=== PATIENT | female | born 1995 | race Caucasian/White ===

== ENCOUNTER 2024-01-27 01:10 | Day surgery (SDC) | payer OTHER, SELFPAY ==
[2024-01-26 10:38] VITALS: BMI 29.6
--- NOTE | 2024-01-26 10:46 | PC.NURSE ---
Report to the Outpatient Waiting Room, entrance under the green pavilion located off [facility], at time _0930_ on date _[id number]_. Planned Procedure Time: _1130_. Time changes happen often and if your time is changed the preop area will call you the afternoon before. - You and your visitor will be asked to self-screen and do not enter if you have any COVID symptoms. - A mask is optional within the hospital at this time. Patients may have clear liquids (water, carbonated beverages, clear teas, apple juice) until 3 hours prior to surgery with a maximum of 20 ounces. - No food from midnight until time of surgery Take the following medications with a SIP of water the morning of surgery: ___None DO NOT STOP ANY OF YOUR OTHER PRESCRIPTION MEDICATIONS PRIOR TO SURGERY ?EXCEPT THE FOLLOWING Medications to discontinue per physician None Date to take last dose Please no make-up, nail honduran, hairspray, perfume, deodorant, or body powder the day of surgery. No jewelry (including any body piercings) or valuables the day of surgery, leave them at home. Please take a shower or bath the night before, or the morning of, surgery with an antibacterial soap. Wear comfortable, loose fitting clothing. - Jewelry must be removed prior to entering the operating room. Rings and piercings that are not removed may be cut off. - The hospital will not accept responsibility for valuables. - Please leave all valuables, including medications, at home the day of surgery. If you are going home after surgery, a licensed concrete mixing truck driver must drive you home. - NO public transportation without another adult if you receive anesthesia. - We recommend that an adult stay with you for 24 hours following discharge. - We also recommend that you do not drive, make important decision, drink alcoholic beverages, or take any drugs that were not prescribed by your health care provider for at least 24 hours after your discharge time. Follow any additional instructions given to you from your surgeon. If you or anyone in your household have experienced Covid symptoms in the past week, please notify your surgeon or the nurse liaison at the phone number below for possible testing. Telephone instructions given to __Jessi____and asked if any additional questions and then verbalized understanding. Patient advised to call surgeon office or pre surgery nurse liaison [phone] if any additional questions.
[2024-01-27] MEDS: ACETAMINOPHEN 500 MG TABLET 1000 MG PO (10:06)
[2024-01-27] MEDS: LACTATED RINGERS 1,000 ML 30 ML IV CONT ×2 (10:06→13:22)
[2024-01-27 10:27] VITALS: BP 104/69; PULSE 83; RESP 14; TEMP 36.3; O2SAT 100; BMI 28.7
--- NOTE | 2024-01-27 10:59 | P.PNAN_ITS ---
Anes - Initial Pre Proc Eval Procedure: Operation Date: 01/27/24 11:30 Proposed Procedures p Suction Dilation and Curettage - Senia Corcoran MD Date/Time: 01/27/24 10:59 Surgeon: Senia Corcoran MD Pre Op Diagnosis: retained products of conception Patient Data Age: 28 Gender: F Height: 1.7 m Weight: 83.15 kg Last Vital Signs Temp 36.3 C L 01/27/24 10:27 Pulse 83 01/27/24 10:27 Resp 14 01/27/24 10:27 BP 104/69 01/27/24 10:27 Pulse Ox 100 01/27/24 10:27 O2 Del Method Room Air 01/27/24 10:27 Allergies Allergy/AdvReac Type Severity Reaction Status Date / Time No Known Allergies Allergy Verified 01/27/24 10:39 Home Medications Medication Instructions Recorded Confirmed Type No Home Medications 01/26/24 01/27/24 History Laboratory Tests 01/27/24 09:51 Blood Type A Positive Antibody Screen Pending Screen Pending Baby's Blood Type Pending Baby's LIZZY Pending Doses of RhIg Required Pending Patient hx anesthesia problems: none Family hx anesthesia problems: none Results Review: All pre-operative results and documents have been reviewed as part of the pre- operative evaluation. PMFSH Past Medical History Medical History (Updated 01/27/24 @ 11:02 by Segundo Crawford MD) Missed ab Surgical History Surgical History (Updated 01/27/24 @ 11:02 by Segundo Crawford MD) Hx of tonsillectomy Social History Social History Smoking status: Never smoker Alcohol intake: current Drinks per week: 6 Substance use: former Substance use type: marijuana Living arrangements: with family Spiritual care concerns: No Anes - Eval Final PreProcedure Day of Procedure 01/27/24 10:59 Patient weight: overweight Heart: regular rate and rhythm Lungs: clear to auscultation Airway: Mallampati scale class II Neurological: alert and oriented Last oral intake: >/= 8 hours ASA classification: II Emergent: no Anesthetic plan: proceed Anesthesia type and monitoring: general GIVS and standard monitoring Results Review: All pre-operative results and documents have been reviewed as part of the pre- operative evaluation. Informed Consent: The patient's anesthetic plan and its attendant risks and benefits were discussed with the patient/family/POA. Questions were solicited and answers provided to the satisfaction of the patient/family/POA.
--- NOTE | 2024-01-27 11:55 | WPDHPUPDATE1 ---
History and Physical Update Update Date/Time: 01/27/24 11:55 History and Physical has been reviewed, including an updated exam of the patient. There are NO changes in the patient's condition. Risks, benefits, and alternatives have been discussed and questions answered. Patient agrees to proceed with procedure.
[2024-01-27 12:54] VITALS: BP 114/65; PULSE 58; RESP 18; O2SAT 99
--- NOTE | 2024-01-27 12:56 | W.PM.PROC2 ---
Procedure Note - Detailed Date of Procedure 01/27/24 Pre-op Diagnosis retained products of conception Post-op Diagnosis Same Procedure Performed Suction D&C Surgeon Senia Corcoran MD Anesthesia MAC Indications missed Findings normal-appearing vulva vagina and cervix to. Moderate amount of products conception within the uterus. 8 cm uterus Description of Procedure the patient was taken the operating room. She was prepped and draped in dorsal lithotomy position after induction of mac anesthesia. A speculum was placed in the vagina. Cervix grasped with tenaculum. The cervix was dilated to about 1 cm Using Leyva dilators. A 8. Macedonian curved curette was used to perform suction D&C. The curette was introduced and vacuum was applied. The curette was removed over all surfaces of the intrauterine cavity multiple times. This was done until all the surfaces were clear and had the familiar grainy texture they can be felt through the instrument. A sharp curette was then used to curettage all the surfaces. The suction cup was then reapplied 1 more time to remove any debris. The instruments were removed. The speculum and tenaculum were removed. The patient tolerated the procedure well. She was taken recovery room stable condition. Estimated Blood Loss 50 Drains No Packing No Pathology Yes Complications No immediate complications Condition Stable Disposition PACU
[2024-01-27 13:20] VITALS: BP 121/53; PULSE 56; RESP 20
[2024-01-27 13:50] VITALS: BP 120/50; PULSE 58; RESP 20
== END 2024-01-27 13:54 | disposition home or self-care (01) ==
PROVIDERS: Visit Provider Obstetrics & Gynecology
PROC: (CPT 59812; principal; 2024-01-27 11:30)
DX: O03.4 Incomplete spontaneous abortion without complication (principal)
CPT/HCPCS: 59812; 36415; 85461; 86850; 86900; 86901; 88305; A9270; J1100; J1885; J2250; J2405; J2704; J3010; J7120

== ENCOUNTER 2024-10-27 09:31 | Outpatient (CLI) | payer BC, SELFPAY ==
--- OUTSIDE RECORDS SUMMARY | 2024-10-27 10:14 | XMS_ITS | Data Portability ---
Author Organization [facility] Address [address] [place] [address] Assessment Encounter Date Assessment Date Assessment LastModified by Organization Details LastModified Time 10/27/2024 10/27/2024 Patient is __36_weeks . Discussed plan. Not available 10/27/2024 10:36:37 Plan of Treatment Reminders Order Date Submit Date Provider Last Modified By Organization Details Last Modified Time Details Appointments NST 2024 08:30A M NST SCHEDULE Not available Not available Not available U/S OB BPP 2024 09:00A M ULTRASOUND Not available Not available Not available OB ROUTINE 2024 09:30A M Margie Hutchinson CNM Not available Not available Not available NST 2024 11:00A M NST SCHEDULE Not available Not available Not available U/S OB BPP 2024 11:30A M ULTRASOUND Not available Not available Not available OB ROUTINE 2024 11:45A M CABRERA HyattM Not available Not available Not available U/S OB GROWTH 2024 08:30A M ULTRASOUND Not available Not available Not available NST 2024 09:00A M NST SCHEDULE Not available Not available Not available OB ROUTINE 2024 09:30A M CABRERA HyattM Not available Not available Not available INDUCTI ON 2024 05:00A M Margie Hutchinson CNM Not available Not available Not available U/S OB BPP 2024 08:30A M ULTRASOUND Not available Not available Not available NST 2024 09:00A M NST SCHEDULE Not available Not available Not available OB ROUTINE 2024 09:30A M Margie Hutchinson CNM Not available Not available Not available Lab None recorde d. Referral None recorde d. Procedures None recorde d. Surgeries None recorde d. Imaging US, obstetr ic, biophys ical profile + non-str ess test 2024 025 [email or web address] [facility], [address], [place], [address], 10/20/2024 21:50:37 non-str ess test 2024 025 [email or web address] [facility], [address], [place], [address], 10/21/2024 09:39:53 US, obstetr ic, biophys ical profile + non-str ess test 2024 025 [email or web address] [facility], [address], [place], [address], 10/27/2024 10:13:03 Medication Orders None recorde d. Patient TargetsNo targets recorded. Patient InstructionsNo instructions recorded. Reason for Referral None Reported. Results Created Date Observation Date Name Description Value Unit Range Abnormal Flag Note LastModifiedBy Organization Detail LastModifiedTime 10/13/1910/13/2024 TSH, REFLE X FREE T4 TSH 4.09 uIU/m L 0.30-5 .33 Not Available [facility] (Lab) [address], [place], [address], 10/14/2024 08:10:07 10/20/19 25 10/20/2024 CULTU RE: GROUP B STREP SCREE N, REFLE X SUSCE PTIBI LITY result report SEE RESULT S BELOW Test: Cultu re: Group B Strep , Refle x Susce ptibi lity ([facility]/ [facility] ) Speci men Sourc e: Vagin a/Rec susana Speci men Type: Vagin al/Re ctal Speci men Date: 2024 1718 Resul t Date: 2024 1137 Resul t Statu s: Final resul t Abnor mal: No Resul michealg Lab: [facility] [address] [facility] [address] Tel: CULTU RE ----- ----- ----- --- No Group B strep isola heidi at 2 days (reji ctive broth enhan cemen t) Not Available [facility] (Lab) [address], [place], [address], 10/23/2024 12:41:08 10/13/1910/13/2024 US, obste tric, follo w-up No observ ation record ed. [email or web address] [facility] [address], [place], [address], 10/13/2024 13:09:19 10/13/19 25 10/13/2024 US, obste tric, follo w-up No observ ation record ed. [email or web address] [address], [place], [address], 10/13/2024 16:17:31 10/20/19 25 10/20/2024 US, obste tric, bioph ysica l profi le + non-s tress test No observ ation record ed. [email or web address] [address], [place], [address], 10/20/2024 18:47:14 10/20/19 25 10/20/2024 US, obste tric, bioph ysica l profi le + non-s tress test No observ ation record ed. [email or web address] [address], [place], [address], 10/20/2024 21:22:41 10/20/19 25 10/20/2024 non-s tress test No observ ation record ed. [email or web address] [facility] [address], [place], [address], 10/20/2024 21:09:03 10/27/19 25 10/27/2024 US, obste tric, bioph ysica l profi le + non-s tress test No observ ation record ed. [email or web address] [facility] [address], [place], [address], 10/27/2024 10:14:40 10/27/19 25 10/27/2024 US, obste tric, bioph ysica l profi le + non-s tress test No observ ation record ed. [email or web address], [place], [address], 10/27/2024 10:13:03 Result Notes None recorded. Problems Name Problem SNOMED Code Status Onset Date Resolution Date Notes Provider Name and Address Organization Details Recorded Time 02998453 Active 2023 Edith Welsh [facility] 17:04:33 Hypothyroi dism 07795173 Active 2023 Levothyrox ine 25mcg rpt 4 weeks. testing 34w Pearl Nicolas [facility] 14:04:46 Problem Notes None recorded. Procedures Surgical History Date Name Laterality Status Provider Name and Address Organization Details Recorded Time 01/27/20 24 SUCTION DILATION & CURETTAGE (SURG) completed Bunny Cat [facility] 01/29/2024 09:59:12 06/11/20 23 IUD Removal completed JOHNNY Broderick [address], [place], [address], [facility] 06/11/2023 10:31:18 06/11/20 23 Date of Last Pap Smear completed Edith Welsh [facility] 01/09/2024 11:26:24 09/29/18 99 Tonsillectomy completed Edith Welsh [facility] 01/09/2024 11:53:32 Imaging Results Imaging Date Name Status LastModified by Organiz ation Details LastModified Time 10/13/2024 US, obstetric, follow-up completed [email or web address] [facility] [address], [place], [address], 10/13/2024 13:09:19 10/13/2024 US, obstetric, follow-up completed [email or web address] [address], [place], [address], 10/13/2024 16:17:31 10/20/2024 US, obstetric, biophysical profile + non-stress test completed [facility] [address], [place], [address], 10/20/2024 18:47:14 10/20/2024 US, obstetric, biophysical profile + non-stress test completed [email or web address] [address], [place], [address], 10/20/2024 21:22:41 10/20/2024 non-stress test completed [facility] [address], [place], [address], 10/20/2024 21:09:03 10/27/2024 US, obstetric, biophysical profile + non-stress test completed [email or web address] [place] [address] [address], [place], [address], 10/27/2024 10:14:40 10/27/2024 US, obstetric, biophysical profile + non-stress test active [email or web address], [place], [address], 10/27/2024 10:13:03 Procedure Notes None recorded. Medical Equipment None Reported. Allergies No known drug allergies Medications Name Sig Start Date Stop Date Status Note LastModified by Organization Details LastModified Time levothyroxin e 25 mcg tablet TAKE 1 TABLET BY MOUTH EVERY DAY DIRECTED active Not Available Not Available No t Available ondansetron 4 mg disintegrati ng tablet Place 1 tablet every 4-6 hours by translingua l route. 2024 active Not Available Not Available Not Avai lable Vitals Date Recorded Body weight Systolic blood pressure Diastolic blood pressure Provider Name and Address Organization Details Last Updated DateTime 10/20/2024 88526.6205 9 g 136 mm[Hg] 84 mm[Hg] JULES BALLARD [facility] 10/20/2024 16:13:19 Date Recorded Body height Body weight Body height Body mass index (BMI) Body weight Systolic blood pressure Diastolic blood pressure Systolic blood pressure Diastolic blood pressure Provider Name and Address Organization Details Last Updated DateTime 170.18 cm 43387.6 2059 g 170.18 cm 32.4 kg/m2 66851.6 2 g 136 mm[Hg] 84 mm[Hg] 136 mm[Hg] 84 mm[Hg] Edith Welsh [facility] 5 21:07:26 Date Recorded Body height Body mass index (BMI) Body weight Systolic blood pressure Diastolic blood pressure Provider Name and Address Organization Details Last Updated DateTime 10/27/2024 170.18 cm 32.4 kg/m2 11813.62 g 132 mm[Hg] 81 mm[Hg] Edith Welsh [facility] 5 10:13:36 Social History Question Answer Notes LastModified by Organizat ion Details LastModified Time Tobacco Smoking Status Never Smoker Edith Welsh [facility], [facility] 01/09/2024 11:53:25 What Is Your Level Of Alcohol Consumption? None [email or web address] Information not available 01/09/2024 If You Are , What Was Your Level Of Alcohol Consumption Prior To ? Occasional [email or web address] Information not available 01/09/2024 How Many Years Have You Consumed Alcohol? 7 Information not available 06/11/2023 Are You Blind Or Do You Have Difficulty Seeing? No Information not available 06/11/2023 What Is Your Level Of Caffeine Consumption? Moderate Information not available 06/11/2023 How Much Tobacco Do You Chew? None Information not available 06/11/2023 In The 14 Days Before Symptom Onset, Have You Had Close Contact With A Laboratory-confir med COVID-19 While That Case Was Ill? No Information not available 06/11/2023 In The 14 Days Before Symptom Onset, Have You Had Close Contact With A Person Who Is Under Investigation For COVID-19 While That Person Was Ill? No Information not available 06/11/2023 Have You Been To An Area Known To Be High Risk For COVID-19? No Information not available 06/11/2023 Are You Deaf Or Do You Have Serious Difficulty Hearing? No Information not available 06/11/2023 What Type Of Diet Are You Following? VEGETARIAN Information not available 06/11/2023 Do You Or Have You Ever Used E-cigarettes Or Vape? Former User Of Electronic Cigarettes [email or web address] Information not available 01/09/2024 What Is The Highest Grade Or Level Of School You Have Completed Or The Highest Degree You Have Received? 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 No Information not available 06/11/2023 Do You Use Protection During Sex? No Information not available 06/11/2023 Do You Use Your Seat Belt Or Car Seat Routinely? Yes Information not available 06/11/2023 Do You Have Smoke And Carbon Monoxide Detectors In Your Home? Yes Information not available 06/11/2023 How Much Tobacco Do You Smoke? No Information not available 06/11/2023 Do You Feel Stressed (tense, Restless, Nervous, Or Anxious, Or Unable To Sleep At Night)? [id number] Information not available 06/11/2023 Do You Use Any Illicit Or Recreational Drugs? No [email or web address] Information not available 05/12/2024 Do You Use Sunscreen Routinely? Yes Information not available 06/11/2023 Has Tobacco Cessation Counseling Been Provided? No [email or web address] Information not available 01/09/2024 Have You Used IV Drugs? No Information not available 06/11/2023 Do You Or Have You Ever Used Any Other Forms Of Tobacco Or Nicotine? Yes [email or web address] Information not available 01/09/2024 Sex: Unknown Functional Status Question Answer Note LastModified by Organizat ion Details LastModified Time Do you have difficulty walking or climbing stairs? No Information not available 06/11/2023 Are you able to walk? [email or web address] Information not available 06/11/2023 Are you able to care for yourself? Yes Information not available 06/11/2023 Do you have difficulty dressing or bathing? No Information not available 06/11/2023 What is your exercise level? Moderate Information not available 06/11/2023 Mental Status None recorded. Family History Relationship Description Onset Age of this Age Resolved Age Notes LastModified by Organization Details LastModified Time Mother Disorder of thyroid gland [email or web address] Not available 05/30 10:06:38 Medical History Condition Response Allergies (Food, seasonal, environmental ) N Other N Breast Cancer N Drug/Latex Allergies/Reactions N Blood Transfusion N Lung Disease N Dermatologic Disorders N Defects or Inherited Disease N Breast Problem N Gestational Diabetes N Hematologic disorders N Anesthesia Complications N History of STI N Deep Vein Thrombosis N Polycystic ovary syndrome N Anxiety Disorder N Autoimmune disease N Arthritis N Polyps N Infertility N History of abnormal pap N Acid Reflux (GERD) N Cancer N Varicosities N Stroke N Neurologic/Epilepsy N Endometriosis N High Cholesterol N Fibromyalgia N Headaches N Kidney Disease N Heart Problems N Kidney or Bladder Problems N Thyroid Problems N GI Problems N Eating Disorder N Anemia N Art (IVF or FET) N Psychiatric Illness N Ovarian Cancer N Diabetes N Pulmonary (TB, Asthma) N Hepatitis/Liver Disease N No Past Medical History Y Eczema N Urinary Tract Infection N Abuse/Domestic Violence N Asthma N Trauma/Violence N Depression/ depression N Heart Disease N Pre-Eclampsia N Hypertension N Osteoporosis N Thrombophilias N Gynecological History Statement/Question Response Abnormal Pap N Date of Last Mammogram Date of LMP N On BCP's at Conception? N STIs/STDs N Was last menstrual period normal Y HPV Vaccine Y Duration of Flow (days) 3 Current Control Method Age at First Child 23 Date of control 11/27/2018 Frequency of Cycle (Q days) 25 Sexually Active? Y None Date of DEXA bone scan Age of first menstrual cycle 11 Date of Last Pap Smear 06/11/2023 Sexual Problems? N LMP Unknown Desired Control Method Withdrawal N Obstetrics History GPAL:G 3 P 1 0 1 1 Type Value Full Term 1 Spontaneous 1 Living 1 Total 3 Past Encounters Encounter ID Performer Location Encounter Start Date Encounter Closed Date Diagnosis/Indication Diagnosis SNOMED-CT Code Diagnosis ICD10 Code Diagnosis Note [id number] JOHNNY Broderick [facility] [address] [address] 06/11/2023 09:47:19 06/11/2023 10:36:53 Screening procedure 00760808 Z13.9 Gynecologi c examination 12086432 Z01.419 Take Calcium with Vitamin D 1200mg daily if not receiving in daily diet. It is strongly advised to have an annual flu shot and up can obtain at most pharmacies . If you have not had a TDap shot in the last 10 years you should obtain one as well. Discussed with patient & provided with informatio n regarding Gardisil vaccine to prevent the 4 strains for HPV that cause cervical cancer if under age 26. Encourage safe sexual practices, to use condoms and limit partners if not already in a monogamous relationsh ip. Do monthly self breast exams. Have mammogram yearly or every other year depending on family history. BRCA testing is now available for patients with strong genetic history of female cancer. If interested contact the office. Engage in daily exercise of low impact aerobic exercise 45-60 minutes 4-5 times weekly. Avoid tobacco and illicit drugs as well as using moderation with alcohol intake less than 1-2 8 oz beverages daily. This lifestyle behavior pattern will lead to less health conditions and longer life span. If BMI greater than 25 weight watchers or dietary consult advised. Patient received above instructio ns, and questions have been answered. If you have any questions please call or respond to this email. Patient was made aware of the patient portal and may obtain a paper copy of today's plan if desired. WWEB - Mirena IUD, inserted 11/2018wou ld like IUD removed today to TTCUPT (-), consent reviewed and signedIUD removed (see procedure note)encou raged daily PNV starting now, discussed timed ICpap updatedSTI testing declineden couraged annual exam with PCP Removal of intrauterine device 92499801 Z30.[id number] [facility] [address],[place] [address] 01/06/2024 11:58:33 01/06/2024 13:07:24 [id number] [facility] [address],[place] [address] 01/09/2024 11:24:54 01/09/2024 12:15:45 Amenorrhea 18417432 N91.2 reviewed us and office, precaution s , educationp ap up to datevegan, eats cheese, discussed b12 with labsf/u rpt screening 2 weeksthen new ob and first look at 12 weeksok to continue with exercise Venereal d isease screening 929804284 Z11.[id number] [facility] [address],[place] [address] 01/22/2024 12:21:31 01/22/2024 13:35:21 Missed miscarriage 84092819 O02.1 Incomplete miscarriage 612636301 O03.4 Z3A.10 [id number] Zen Corcoran MD [facility] [address],[place] [address] 01/23/2024 10:59:17 01/23/2024 12:40:53 Incomplete miscarriage 701764233 O03.4 Z3A.10 this patient is a 28-year-ol d female with incomplete miscarriag e. We have agreed to perform suction D&C. She understand s risks, benefits, and alternativ es. She is completed the informed consent process and is ready to proceed. We made a decision to perform surgery today. [id number] Zen Corcoran MD [facility] [address],[place] [address] 02/03/2024 12:00:04 02/03/2024 12:46:13 Incomplete miscarriage 596492205 O03.4 Z3A.10 this patient presents for postop follow-up. She is 1 week postop from a suction D&C. She is recovering normally. Her bleeding is minimal. She has no foul-smell ing vaginal discharge. She denies any nausea, vomiting, fever, chills. We discussed contracept ion. We discussed future . She will follow up for a repeat test. Procedure was performed for incomplete miscarriag e [id number] [facility] [address],[place] [address] 04/29/2024 11:24:12 04/29/2024 12:03:18 screening 325253134 Z36.[id number] [facility] [address],[place] [address] 05/12/2024 15:48:46 05/12/2024 16:49:05 screening 091493171 Z36.82 Z3A.12 [id number] Margie Hutchinson [facility] [address],[place] [address] 05/12/2024 15:49:08 05/12/2024 17:09:17 Gestation period, 12 weeks 26549913 Z3A.12 Routine an tenatal care 149504212 Z34.90 Venereal d isease screening 859106748 Z11.3 [id number] Margie Hutchinson [facility] [address],[place] [address] 06/09/2024 09:53:50 06/09/2024 11:24:02 Fatigue 37051358 R53.83 Routine an tenatal care 761823593 Z34.90 [id number] Cristine [facility] [address],[place] [address] 07/07/2024 09:14:33 07/07/2024 10:40:43 screening for malformation 002801234 Z36.3 Z3A.20 [id number] Margie Hutchinson [facility] [address],[place] [address] 07/07/2024 09:16:42 07/07/2024 10:53:25 Gestation period, 20 weeks 42676625 Z3A.[id number] [facility] [address],[place] [address] 08/04/2024 11:44:32 08/04/2024 13:21:42 screening 075937445 Z36.2 Z3A.24 [id number] Margie Hutchinson [facility] [address],[place] [address] 08/04/2024 11:45:19 08/04/2024 13:21:34 Anxiety 98023872 F41.9 Weight increased 6450219 00 R63.5 [id number] Margie Hutchinson [facility] [address],[place] [address] 09/01/2024 09:25:14 09/01/2024 10:33:17 Gestation period, 28 weeks 41385420 Z3A.28 [id number] Margie Hutchinson [facility] [address],[place] [address] 09/17/2024 10:09:34 09/17/2024 10:54:03 Gestation period, 30 weeks 08932116 Z3A.30 [id number] Margie Hutchinson [facility] [address],[place] [address] 10/01/2024 11:42:45 10/01/2024 12:13:48 Nausea and vomiting 14130304 R11.[id number] [facility] [address],[place] [address] 10/13/2024 09:13:11 10/13/2024 10:08:50 Hypothyroidism in 732144262 E03.9 Z3A.34 [id number] Margie Hutchinson [facility] [address],[place] [address] 10/13/2024 09:13:25 10/13/2024 10:51:30 Gestation period, 34 weeks 67545999 Z3A.34 [id number] Edith Welsh [facility] [address],[place] [address] 10/20/2024 15:52:42 10/21/2024 09:39:53 Maternal obesity complicating , childbirth and the puerperium, antepartum 8456727409 07 O99.213 [id number] Cristine Singh [facility] [address],[place] [address] 10/20/2024 15:53:06 10/20/2024 17:47:24 Hypothyroidism in 453420687 O99.283 Z3A.35 [id number] Margie Hutchinson [facility] [address],[place] [address] 10/20/2024 15:53:20 10/21/2024 00:46:19 Gestation period, 35 weeks 30583512 Z3A.35 [id number] [facility] [address],[place] [address] 10/27/2024 09:17:27 10/27/2024 10:09:57 Hypothyroidism in 840974288 O99.283 Z3A.36 [id number] Margie Hutchinson [facility] [address],[place] [address] 10/27/2024 09:17:40 10/27/2024 10:37:52 Gestation period, 36 weeks 48819580 Z3A.36 Health Concerns Section Related Observation LastModified by Organization Detai ls LastModified Time None Recorded Concern Status LastModified by Organization Details LastModified Time None Recorded Advance Directives Directive None Recorded Payers Encounter Date Sequence Insurance Name Policy Number Policy Rodriguez Covered Member ID Rodriguez Member ID Guarantor Name 10/20/2024 1 [place] [id number] Kaushal Lynch [id number] 21 Jessi Lynch 10/20/2024 1 [place] [id number] Kaushal Lynch [id number] 21 Jessi Lynch 10/27/2024 1 [place] [id number] Kaushal Lynch [id number] 21 Jessi Lynch 10/27/2024 1 [place] [id number] Kaushal Lynch [id number] Jessi Lynch OBGyn Episode Ob Episode Information Episode Created Date Number of Fetuses Patient Bloodtype Patient rh Status Prepregnancy Weight lbs Domestic Partner Domestic Partner Phone Father Name Supervisor Locomotive Status 05/12/20 24 1 A Positive 186 Kaushal Montgomery en OPEN Fetus Data First Name Last Name Admitted to NICU Weight (g) Sex Living Outcome Pediatric Complications Fetus ID Race Codes Race Delivery Type [id number] Problems Problem Notes declines cf/sma/niptAnterior Placenta Problem Name Start Date End Date Resolution Snomed Code Not e Hypothyroidism 08/09/2024 22744309 Levo thyroxine 25mcg rpt 4 weeks. testing 34w Xavi Calculation Initial Xavi Date Initial Exam Date Initial Exam Provider Initial Ultrasound Date Last Menstrual Period Date Ultra Sound Weeks Gestation 11/22/2024 04/29/2024 04/29/2024 10 Eighteen To Twenty Week Xavi Update Ultra Sound Date Fundal Height At Umbil Quickening Date Ultra Sound Latest Weeks Gestation Final Xavi Confirmed By Final Xavi Confirmed Date Final Xvai Date Ultra Sound Latest Days Gestation 0 [email or web address] 05/13/2024 11/22/19 25 0 Pre- Flowsheet Flowsheet Date 05/12/2024 Patel Score Blood Edema Fundus Height Fundus Units Glucose Ketones Leukocytes Nitrite Labor Signs Protein Cervic Dilation Cervic Effacement Cervic Station Type Weight in lbs Pre/Post Dialysis Refused Weight 185.507678332850 BP Diastolic BP Location Tested BP Systolic BP Type 67 112 Fetus Heart Rate Present Fetus Movement Comments history of full term uncompl icated vaginal delivery at 41 weeks, reviewed us today and wnl, still using zofran daily, ok to use unisom for sleep, f/u 4 weeks ob visit or sooner if needed. begin routine care, labs today with NIPS Flowsheet Date 06/09/2024 Patel Score Blood Edema Fundus Height Fundus Units Glucose Ketones Leukocytes Nitrite Labor Signs Protein Cervic Dilation Cervic Effacement Cervic Station none Type Weight in lbs Pre/Post Dialysis Refused 184.653328383293 BP Diastolic BP Location Tested BP Systolic BP Type 72 108 Fetus Heart Rate Present A 140 Present Fetus Movement A Yes Comments Patient states that is start ing to have issues with allergies, and is having some nausea and vomiting. refill zofran, ok for saline spray, snacks inbetween meals f/u 4 weeks, precautions and education Flowsheet Date 07/07/2024 Patel Score Blood Edema Fundus Height Fundus Units Glucose Ketones Leukocytes Nitrite Labor Signs Protein Cervic Dilation Cervic Effacement Cervic Station Type Weight in lbs Pre/Post Dialysis Refused BP Diastolic BP Location Tested BP Systolic BP Type Fetus Heart Rate Present Fetus Movement Comments Flowsheet Date 07/07/2024 Patel Score Blood Edema Fundus Height Fundus Units Glucose Ketones Leukocytes Nitrite Labor Signs Protein Cervic Dilation Cervic Effacement Cervic Station none Type Weight in lbs Pre/Post Dialysis Refused 191.324368203061 BP Diastolic BP Location Tested BP Systolic BP Type 62 111 Fetus Heart Rate Present Fetus Movement A Yes Comments Patient is having some left side pain and nausea. discussed increased hydration, maternity belt at 28 weeks, anatomy incomplete anterior placenta, continue zofran as needed, education and precautions f/u 4 weeks with US Flowsheet Date 08/04/2024 Patel Score Blood Edema Fundus Height Fundus Units Glucose Ketones Leukocytes Nitrite Labor Signs Protein Cervic Dilation Cervic Effacement Cervic Station Type Weight in lbs Pre/Post Dialysis Refused BP Diastolic BP Location Tested BP Systolic BP Type Fetus Heart Rate Present Fetus Movement Comments Flowsheet Date 08/04/2024 Patel Score Blood Edema Fundus Height Fundus Units Glucose Ketones Leukocytes Nitrite Labor Signs Protein Cervic Dilation Cervic Effacement Cervic Station none Type Weight in lbs Pre/Post Dialysis Refused 199.023355265321 BP Diastolic BP Location Tested BP Systolic BP Type 68 106 Fetus Heart Rate Present Fetus Movement A Yes Comments Patient is having some anxie ty, pain, contractions, cramping, nausea and vomiting. no suicidal thoughts wants thyroid panel, if normal may consider low dose sertraline discussed maternal and side effects, await labs precaution and education, f/u 4 weeks with GCTefw 43% anatomy complete Flowsheet Date 09/01/2024 Patel Score Blood Edema Fundus Height Fundus Units Glucose Ketones Leukocytes Nitrite Labor Signs Protein Cervic Dilation Cervic Effacement Cervic Station none Type Weight in lbs Pre/Post Dialysis Refused 206.634144475089 BP Diastolic BP Location Tested BP Systolic BP Type 74 108 Fetus Heart Rate Present Fetus Movement A Yes Comments Patient states that is havin g some BH contractions, nausea and vomiting. reviewed precautions education GCT today, ok for tdap, +FM doing well f/u 2 weeks Flowsheet Date 09/17/2024 Patel Score Blood Edema Fundus Height Fundus Units Glucose Ketones Leukocytes Nitrite Labor Signs Protein Cervic Dilation Cervic Effacement Cervic Station trace Type Weight in lbs Pre/Post Dialysis Refused 204.469466579485 BP Diastolic BP Location Tested BP Systolic BP Type 71 109 Fetus Heart Rate Present Fetus Movement A Yes Comments Patient is having contractio ns, swelling, nausea and vomiting. reviewed precautions and education,+FM, would like IOL around 11/16 roscoe, f/u 2 weeks Flowsheet Date 10/01/2024 Patel Score Blood Edema Fundus Height Fundus Units Glucose Ketones Leukocytes Nitrite Labor Signs Protein Cervic Dilation Cervic Effacement Cervic Station 33 cm Type Weight in lbs Pre/Post Dialysis Refused Weight 203.225693857269 BP Diastolic BP Location Tested BP Systolic BP Type 72 123 Fetus Heart Rate Present A 135 Fetus Movement Comments has growth next visit, refil nathaniel chao, +FM, precautions and education f/u 2 weeks, call for preadmit Flowsheet Date 10/13/2024 Patel Score Blood Edema Fundus Height Fundus Units Glucose Ketones Leukocytes Nitrite Labor Signs Protein Cervic Dilation Cervic Effacement Cervic Station Type Weight in lbs Pre/Post Dialysis Refused BP Diastolic BP Location Tested BP Systolic BP Type Fetus Heart Rate Present Fetus Movement Comments Flowsheet Date 10/13/2024 Patel Score Blood Edema Fundus Height Fundus Units Glucose Ketones Leukocytes Nitrite Labor Signs Protein Cervic Dilation Cervic Effacement Cervic Station neg none Type Weight in lbs Pre/Post Dialysis Refused Weight 205.354472717142 BP Diastolic BP Location Tested BP Systolic BP Type 76 110 Fetus Heart Rate Present Fetus Movement A Yes Comments Patient is having some short ness of breathe, back pain, contractions and nausea. discussed precautions and education, plan rpt tsh, did not start levothyroxine, efw 45%, preadmit scheduled. unsure about rsv f/u 2 weeks plan gbs Flowsheet Date 10/20/2024 Patel Score Blood Edema Fundus Height Fundus Units Glucose Ketones Leukocytes Nitrite Labor Signs Protein Cervic Dilation Cervic Effacement Cervic Station Type Weight in lbs Pre/Post Dialysis Refused Weight 207.070240004405 BP Diastolic BP Location Tested BP Systolic BP Type 84 136 Fetus Heart Rate Present Fetus Movement Comments Flowsheet Date 10/20/2024 Patel Score Blood Edema Fundus Height Fundus Units Glucose Ketones Leukocytes Nitrite Labor Signs Protein Cervic Dilation Cervic Effacement Cervic Station Type Weight in lbs Pre/Post Dialysis Refused 207.648374366739 BP Diastolic BP Location Tested BP Systolic BP Type 84 L arm 136 sitting Fetus Heart Rate Present Fetus Movement Comments Flowsheet Date 10/20/2024 Patel Score Blood Edema Fundus Height Fundus Units Glucose Ketones Leukocytes Nitrite Labor Signs Protein Cervic Dilation Cervic Effacement Cervic Station trace Type Weight in lbs Pre/Post Dialysis Refused 207.247551302205 BP Diastolic BP Location Tested BP Systolic BP Type 84 136 Fetus Heart Rate Present Fetus Movement A Yes Comments Patient states that is havin g some shortness of breathe , back pain, contractions, discharge, swelling and nausea. Flowsheet Date 10/27/2024 Patel Score Blood Edema Fundus Height Fundus Units Glucose Ketones Leukocytes Nitrite Labor Signs Protein Cervic Dilation Cervic Effacement Cervic Station Type Weight in lbs Pre/Post Dialysis Refused BP Diastolic BP Location Tested BP Systolic BP Type Fetus Heart Rate Present Fetus Movement Comments Flowsheet Date 10/27/2024 Patel Score Blood Edema Fundus Height Fundus Units Glucose Ketones Leukocytes Nitrite Labor Signs Protein Cervic Dilation Cervic Effacement Cervic Station Type Weight in lbs Pre/Post Dialysis Refused BP Diastolic BP Location Tested BP Systolic BP Type Fetus Heart Rate Present Fetus Movement Comments Flowsheet Date 10/27/2024 Patel Score Blood Edema Fundus Height Fundus Units Glucose Ketones Leukocytes Nitrite Labor Signs Protein Cervic Dilation Cervic Effacement Cervic Station neg trace Type Weight in lbs Pre/Post Dialysis Refused Weight 207.562420603753 BP Diastolic BP Location Tested BP Systolic BP Type 81 132 Fetus Heart Rate Present Fetus Movement A Yes Comments Patient is having some contr actions, discharge, swelling and nausea. to ld for r/o rupture, nst reassuring bpp 8/8 precautions and education, preadmit done f/u one week Menstrual History Last Menstrual Date Menses Monthly On Bcp Conception Prior Menses Frequency Hcg Plus Date Menarche Onset Age Delivery Information Delivery Date Delivery Type Labor Anesthesia Weeks Gestation Incision Type Labor Labor Length Hrs Delivered By Post Complications Tubal Sterilization Discharge Date Comments Discharge Information Feeding Method Contraceptive Method Maternal HG B and HCT Levels Ob Episode Information Episode Created Date Number of Fetuses Patient Bloodtype Patient rh Status Prepregnancy Weight lbs Domestic Partner Domestic Partner Phone Father Name Supervisor Locomotive Status 05/12/20 24 1 CLOSED Fetus Data First Name Last Name Admitted to NICU Weight (g) Sex Living Outcome Pediatric Complications Fetus ID Race Codes Race Delivery Type , Spontane ous [id number] Xavi Calculation Initial Xavi Date Initial Exam Date Initial Exam Provider Initial Ultrasound Date Last Menstrual Period Date Ultra Sound Weeks Gestation 0 Eighteen To Twenty Week Xavi Update Ultra Sound Date Fundal Height At Umbil Quickening Date Ultra Sound Latest Weeks Gestation Final Xavi Confirmed By Final Xavi Confirmed Date Final Xavi Date Ultra Sound Latest Days Gestation 0 0 Menstrual History Last Menstrual Date Menses Monthly On Bcp Conception Prior Menses Frequency Hcg Plus Date Menarche Onset Age Delivery Information Delivery Date Delivery Type Labor Anesthesia Weeks Gestation Incision Type Labor Labor Length Hrs Delivered By Post Complications Tubal Sterilization Discharge Date Comments 4 Discharge Information Feeding Method Contraceptive Method Maternal HG B and HCT Levels Ob Episode Information Episode Created Date Number of Fetuses Patient Bloodtype Patient rh Status Prepregnancy Weight lbs Domestic Partner Domestic Partner Phone Father Name Supervisor Locomotive Status 06/11/20 23 1 CLOSED Fetus Data First Name Last Name Admitted to NICU Weight (g) Sex Living Outcome Pediatric Complications Fetus ID Race Codes Race Delivery Type 3316.66 [id number] F Full Term [id number] Vaginal Delivery Xavi Calculation Initial Xavi Date Initial Exam Date Initial Exam Provider Initial Ultrasound Date Last Menstrual Period Date Ultra Sound Weeks Gestation 0 Eighteen To Twenty Week Xavi Update Ultra Sound Date Fundal Height At Umbil Quickening Date Ultra Sound Latest Weeks Gestation Final Xavi Confirmed By Final Xavi Confirmed Date Final Xavi Date Ultra Sound Latest Days Gestation 0 0 Menstrual History Last Menstrual Date Menses Monthly On Bcp Conception Prior Menses Frequency Hcg Plus Date Menarche Onset Age Delivery Information Delivery Date Delivery Type Labor Anesthesia Weeks Gestation Incision Type Labor Labor Length Hrs Delivered By Post Complications Tubal Sterilization Discharge Date Comments 9 41 Discharge Information Feeding Method Contraceptive Method Maternal HG B and HCT Levels
--- OUTSIDE RECORDS SUMMARY | 2024-10-27 10:14 | XMS_ITS | Continuity of Care Document ---
Author Organization [facility] Address [address] [place] [address] Assessment Encounter Date Assessment Date Assessment LastModified [...] available OB ROUTINE 2024 09:30A M Margie Hutchinson, CABRERALily Not available Not available Not available Lab None recorde d. Referral None recorde d. Procedures None recorde d. Surgeries None recorde d. Imaging None recorde d. Medication Orders None recorde d. Patient TargetsNo targets recorded. Patient InstructionsNo instructions recorded. Reason for Referral None Reported. Results Created Date Observation Date Name Description Value Unit Range Abnormal Flag Note LastModifiedBy Organization Detail LastModifiedTime 05/12/20 24 05/12/2024 US, obste tric, nucha l trans lucen cy No observ ation record ed. [email or web address] [facility] [address], [place], [address], 05/12/2024 18:31:37 05/12/20 24 05/12/2024 US, obste tric, nucha l trans lucen cy No observ ation record ed. [email or web address] [address], [place], [address], 05/12/2024 21:43:48 07/07/2007/07/2024 US, obste tric, 2nd or 3rd trime ster No observ ation record ed. [email or web address] [facility] [address], [place], [address], 07/07/2024 11:18:40 07/07/2007/07/2024 US, obste tric, follo w-up No observ ation record ed. [address], [place], [address], 07/08/2024 14:51:45 08/04/20 24 08/04/2024 US, obste tric, follo w-up No observ ation record ed. [email or web address] [address], [place], [address], 08/19/2024 21:51:39 08/04/20 24 08/04/2024 US, obste tric, follo w-up No observ ation record ed. [email or web address] [facility] [address], [place], [address], 08/04/2024 13:12:30 10/13/19 25 10/13/2024 US, obste tric, follo w-up No observ ation record ed. [email or web address] [facility] [address], [place], [address], 10/13/2024 13:09:19 10/13/19 25 10/13/2024 US, obste tric, follo w-up No observ ation record ed. [email or web address] [address], [place], [address], 10/13/2024 16:17:31 10/20/19 25 10/20/2024 US, obste tric, bioph ysica l profi le + non-s tress test No observ [facility]ion [facility] [address], [place], [address], 10/20/2024 18:47:14 10/20/19 25 10/20/2024 US, obste tric, bioph ysica l profi le + non-s tress test No observ ation record ed. [email or web address] [address], [place], [address], 10/20/2024 21:22:41 10/20/19 25 10/20/2024 non-s tress test No observ ation record ed. [email or web address] [facility] [address], [place], [address], 10/20/2024 21:09:03 10/27/19 25 10/27/2024 US, obste tric, bioph ysica l profi le + non-s tress test No observ ation record ed. [email or web address] [facility] [address], [place], [address], 10/27/2024 10:14:40 10/27/19 25 10/27/2024 US, obste tric, bioph ysica l profi le + non-s tress test No observ ation record ed. [email or web address], [place], [address], 10/27/2024 10:13:03 Result Notes None recorded. Problems Name Problem SNOMED Code Status Onset Date Resolution Date Notes Provider Name and Address Organization Details Recorded Time 50605507 Active 2023 Edith Welsh [facility] 17:04:33 Hypothyroi dism 28080816 Active 2023 Levothyrox ine 25mcg rpt 4 weeks. testing 34w Pearl Fidencio [facility] 4 14:04:46 Problem Notes None recorded. Procedures Surgical History Date Name Laterality Status Provider Name and Address Organization Details Recorded Time 01/27/20 24 SUCTION DILATION & CURETTAGE (SURG) completed Bunny Cat [facility] 01/29/2024 09:59:12 06/11/20 23 IUD Removal completed JOHNNY Broderick [address], [place], [address], [facility] 06/11/2023 10:31:18 06/11/20 23 Date of Last Pap Smear completed Edith Welsh [facility] 01/09/2024 11:26:24 09/29/18 99 Tonsillectomy completed Edith Welsh [facility] 01/09/2024 11:53:32 Imaging Results None recorded. Procedure Notes None recorded. Medical Equipment None [...] Not Avai lable Vitals Date Recorded Body height Body mass index (BMI) Body weight Systolic blood pressure Diastolic blood pressure Provider Name and Address Organization Details Last Updated DateTime 10/27/2024 170.18 cm 32.4 kg/m2 53016.62 g 132 mm[Hg] 81 mm[Hg] Edith Welsh [facility] 10:13:36 Social History Question Answer Notes LastModified by Organizat ion Details LastModified Time Tobacco Smoking Status Never Smoker Edith Welsh [facility], [facility] 01/09/2024 11:53:25 What Is Your Level Of Alcohol Consumption? None [email or web address] Information not available 01/09/2024 If You Are , What Was Your Level Of Alcohol Consumption Prior To ? Occasional [email or web address] Information not available 01/09/2024 How Many Years [...] Or Vape? Former User Of Electronic Cigarettes Information not available 01/09/2024 What Is The Highest Grade Or Level Of School You Have Completed Or The Highest Degree You Have Received? 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 [id number] Information not available 06/11/2023 Do You Use Any Illicit Or Recreational Drugs? No [email or web address] Information not available 05/12/2024 Do You Use Sunscreen Routinely? Yes Information not available 06/11/2023 Has Tobacco Cessation Counseling Been Provided? No Information not available 01/09/2024 Have You Used IV Drugs? No Information not available 06/11/2023 Do You Or Have You Ever Used Any Other Forms Of Tobacco Or Nicotine? Yes [email or web address] Information not available 01/09/2024 Sex: Unknown Functional [...] N Drug/Latex Allergies/Reactions N Blood Transfusion N Dermatologic Disorders N Lung Disease N Defects or Inherited Disease N Breast Problem N Gestational Diabetes N Hematologic disorders N Anesthesia Complications N History of STI N Deep Vein Thrombosis N Polycystic ovary syndrome N Anxiety Disorder N Autoimmune disease N Arthritis N Infertility N Polyps N Acid Reflux (GERD) N History of abnormal pap N Cancer N Stroke N Varicosities N Neurologic/Epilepsy N Endometriosis N High Cholesterol N Headaches N Fibromyalgia N Kidney Disease N Heart Problems N [...] SNOMED-CT Code Diagnosis ICD10 Code Diagnosis Note [id number] Margie Hutchinson, FABIOLA [facility] [address] [address] 10/01/2024 11:42:45 10/01/2024 12:13:48 Nausea and vomiting 70990061 R11.[id number] [facility] [address],[place] [address] 10/13/2024 09:13:11 10/13/2024 10:08:50 Hypothyroidism in 988099649 E03.9 Z3A.34 [id number] Margie Hutchinson [facility] [address],[place] [address] 10/13/2024 09:13:25 10/13/2024 10:51:30 Gestation period, 34 weeks 40394634 Z3A.34 [id number] Edith Welsh [facility] [address],[place] [address] 10/20/2024 15:52:42 10/21/2024 09:39:53 Maternal obesity complicating , childbirth and the puerperium, antepartum 6721575211 07 O99.213 [id number] [facility] [address],[place] [address] 10/20/2024 15:53:06 10/20/2024 17:47:24 Hypothyroidism in 628902597 O99.283 Z3A.35 [id number] [facility] [address],[place] [address] 10/20/2024 15:53:20 10/21/2024 00:46:19 Gestation period, 35 weeks 7[address]19923 Z3A.[id number] [facility] [address],[place] [address] 10/27/2024 09:17:27 10/27/2024 10:09:57 Hypothyroidism in 260138318 O99.283 Z3A.36 [id number] [facility] [address],[place] [address] 10/27/2024 09:17:40 10/27/2024 10:37:52 Gestation period, 36 weeks 63620641 Z3A.36 Health Concerns Section Related Observation LastModified by Organization Detai ls LastModified Time None Recorded Concern Status LastModified by Organization Details LastModified Time None Recorded Payers Encounter Date Sequence Insurance Name Policy Number Policy Rodriguez Covered Member ID Rodriguez Member ID Guarantor Name 10/27/2024 1 [place] [id number] Kaushal Cris [id number] Jessi Cris OBGyn Episode Ob Episode Information Episode Created Date Number of Fetuses Patient Bloodtype Patient rh Status Prepregnancy Weight lbs Domestic Partner Domestic Partner Phone Father Name Fur Farmer Status 05/12/20 24 1 A Positive [address] Valentina en OPEN Fetus Data First Name Last Name Admitted to NICU Weight (g) Sex Living Outcome Pediatric Complications Fetus ID Race Codes Race Delivery Type [id number] Problems Problem Notes declines cf/sma/niptAnterior Placenta Problem Name Start Date End Date Resolution Snomed Code Not e Hypothyroidism 08/09/2024 12635593 Levo thyroxine 25mcg rpt 4 weeks. testing [...] Date Ultra Sound Latest Days Gestation 0 [email or web address] 05/13/2024 11/22/19 25 0 Pre- Flowsheet Flowsheet Date 05/12/2024 Patel Score Blood Edema Fundus Height Fundus Units Glucose Ketones Leukocytes Nitrite Labor Signs Protein Cervic Dilation Cervic Effacement Cervic Station Type Weight in lbs Pre/Post Dialysis Refused Weight 185.457308413132 BP Diastolic BP Location Tested BP Systolic [...] Type Weight in lbs Pre/Post Dialysis Refused 184.160575197998 BP Diastolic BP Location Tested BP Systolic [...] Type Weight in lbs Pre/Post Dialysis Refused 191.882745495220 BP Diastolic BP Location Tested BP Systolic [...] Type Weight in lbs Pre/Post Dialysis Refused 199.925934340232 BP Diastolic BP Location Tested BP Systolic [...] Type Weight in lbs Pre/Post Dialysis Refused 206.292414997939 BP Diastolic BP Location Tested BP Systolic [...] Type Weight in lbs Pre/Post Dialysis Refused 204.851188364473 BP Diastolic BP Location Tested BP Systolic [...] Weight in lbs Pre/Post Dialysis Refused Weight 203.017515631521 BP Diastolic BP Location Tested BP Systolic [...] Weight in lbs Pre/Post Dialysis Refused Weight 205.047194749344 BP Diastolic BP Location Tested BP Systolic [...] Weight in lbs Pre/Post Dialysis Refused Weight 207.820182761430 BP Diastolic BP Location Tested BP Systolic BP Type 84 136 Fetus Heart Rate Present Fetus Movement Comments Flowsheet Date 10/20/2024 Patel Score Blood Edema Fundus Height Fundus Units Glucose Ketones Leukocytes Nitrite Labor Signs Protein Cervic Dilation Cervic Effacement Cervic Station Type Weight in lbs Pre/Post Dialysis Refused 207.531763938211 BP Diastolic BP Location Tested BP Systolic BP Type 84 L arm 136 sitting Fetus Heart Rate Present Fetus Movement Comments Flowsheet Date 10/20/2024 Patel Score Blood Edema Fundus Height Fundus Units Glucose Ketones Leukocytes Nitrite Labor Signs Protein Cervic Dilation Cervic Effacement Cervic Station trace Type Weight in lbs Pre/Post Dialysis Refused 207.825432718373 BP Diastolic BP Location Tested BP Systolic [...] Weight in lbs Pre/Post Dialysis Refused Weight 207.089744029532 BP Diastolic BP Location Tested BP Systolic BP Type 81 132 Fetus Heart Rate Present Fetus Movement A Yes Comments Patient is having some contr actions, discharge, swelling and nausea. to ld for r/o rupture, nst reassuring bpp 05/06 precautions and education, preadmit done f/u one [...]
--- OUTSIDE RECORDS SUMMARY | 2024-10-27 10:15 | XMS_ITS | Continuity of Care Document ---
Author Organization [facility] Address [address] [place] [address] Assessment No assessment recorded. Plan of Treatment Reminders Order Date Submit [...] Not available OB ROUTINE 2024 11:45A M Margie Hutchinson CNM Not available Not available Not available U/S OB GROWTH 2024 08:30A M ULTRASOUND Not available Not available Not available NST 2024 09:00A M NST SCHEDULE Not available Not available Not available OB ROUTINE 2024 09:30A M Margie Hutchinson CNM Not available Not available Not available INDUCTI ON 2024 05:00A M Margie Hutchinson CNM Not available Not available Not available U/S OB BPP 2024 08:30A M ULTRASOUND Not available Not available Not available NST 2024 09:00A M NST SCHEDULE Not available Not available Not available OB ROUTINE 2024 09:30A M CABRERA HyattM Not available Not available Not available Lab None recorde d. Referral None recorde d. Procedures None recorde d. Surgeries None recorde d. Imaging US, obstetr ic, biophys ical profile + non-str ess test 2024 025 K[address] [place], [address], [address], [place], [address], 10/27/2024 10:13:03 Medication Orders None recorde d. Patient TargetsNo targets recorded. Patient InstructionsNo instructions recorded. Reason for Referral None Reported. Results Created Date Observation Date Name Description Value Unit Range Abnormal Flag Note LastModifiedBy Organization Detail LastModifiedTime 05/12/20 24 05/12/2024 US, obste tric, nucha l trans lucen cy No observ ation record ed. [email or web address] [place] [address], [place], [address], 05/12/2024 18:31:37 05/12/20 24 05/12/2024 US, obste tric, nucha l trans lucen cy No observ ation record ed. [email or web address] [address], [place], [address], 05/12/2024 21:43:48 07/07/20 24 07/07/2024 US, obste tric, 2nd or 3rd trime ster No observ ation record ed. [email or web address] [address] [address], [place], [address], 07/07/2024 11:18:40 07/07/20 24 07/07/2024 US, obste tric, follo w-up No observ ation record ed. [email or web address] [address], [place], [address], 07/08/2024 14:51:45 08/04/20 24 08/04/2024 US, obste tric, follo w-up No observ ation record ed. [email or web address] [address], [place], [address], 08/19/2024 21:51:39 08/04/20 24 08/04/2024 US, obste tric, follo w-up No observ ation record ed. [email or web address] [address], [place], [address], 08/04/2024 13:12:30 10/13/19 25 10/13/2024 US, obste tric, follo w-up No observ ation record ed. [email or web address] [address] [address], [place], [address], 10/13/2024 13:09:19 10/13/19 25 10/13/2024 US, obste tric, follo w-up No observ ation record ed. [email or web address] [address], [place], [address], 10/13/2024 16:17:31 10/20/19 25 10/20/2024 US, obste tric, bioph ysica l profi le + non-s tress test No observ ation record ed. [email or web address] [address] [address], [place], [address], 10/20/2024 18:47:14 10/20/19 25 10/20/2024 US, obste tric, bioph ysica l profi le + non-s tress test No observ ation record ed. [email or web address] [address], [place], [address], 10/20/2024 21:22:41 10/20/19 25 10/20/2024 non-s tress test No observ ation record ed. [email or web address] [address], [place], [address], 10/20/2024 21:09:03 10/27/19 25 10/27/2024 US, obste tric, bioph ysica l profi le + non-s tress test No observ ation record ed. [email or web address] [address] [address], [place], [address], 10/27/2024 10:14:40 10/27/19 25 10/27/2024 US, obste tric, bioph ysica l profi le + non-s tress test No observ ation record ed. [email or web address], [place], [address], 10/27/2024 10:13:03 Result Notes None recorded. Problems Name Problem SNOMED Code Status Onset Date Resolution Date Notes Provider Name and Address Organization Details Recorded Time 40120815 Active [address] [facility] 17:04:33 Hypothyroi dism 87440844 Active 2023 Levothyrox ine 25mcg rpt 4 weeks. testing [address] [facility] 4 14:04:46 Problem Notes None recorded. Procedures Surgical History Date Name Laterality Status Provider Name and Address Organization Details Recorded Time 01/27/20 24 SUCTION DILATION & CURETTAGE (SURG) completed Bunny Cat [facility] 01/29/2024 09:59:12 06/11/20 23 IUD Removal completed JOHNNY Broderick [address], [place], [address], [facility] 06/11/2023 10:31:18 06/11/20 23 Date of Last Pap Smear completed Edith Welsh [facility] 01/09/2024 11:26:24 09/29/18 99 Tonsillectomy completed Edith Welsh [facility] 01/09/2024 11:53:32 Imaging Results Imaging Date Name Status LastModified by Organiz ation Details LastModified Time 10/27/2024 US, obstetric, biophysical profile + non-stress test completed [email or web address] [address] [address], [place], [address], 10/27/2024 10:14:40 Procedure Notes None recorded. Medical Equipment None [...] Updated DateTime 10/27/2024 170.18 cm 32.4 kg/m2 16204.62 g 132 mm[Hg] 81 mm[Hg] Edith Welsh [facility] 10:13:36 Social History Question Answer Notes LastModified by Organizat ion Details LastModified Time Tobacco Smoking Status Never Smoker Edith Welsh [facility] 01/09/2024 11:53:25 What Is Your Level Of Alcohol Consumption? None [email or web address] Information not available 01/09/2024 If You Are , What Was Your Level Of Alcohol Consumption Prior To ? Occasional [email or web address] Information not available 01/09/2024 How Many Years [...] Or Vape? Former User Of Electronic Cigarettes [email or web address] Information not available 01/09/2024 What Is The Highest Grade Or Level Of School You Have Completed Or The Highest Degree You Have Received? 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 [id number] Information not available 06/11/2023 Do You Use Any Illicit Or Recreational Drugs? No Information not available 05/12/2024 Do You Use Sunscreen Routinely? Yes Information not available 06/11/2023 Has Tobacco Cessation Counseling Been Provided? No [email or web address] Information not available 01/09/2024 Have You Used IV Drugs? No Information not available 06/11/2023 Do You Or Have You Ever Used Any Other Forms Of Tobacco Or Nicotine? Yes [email or web address] Information not available 01/09/2024 Sex: Unknown Functional [...] SNOMED-CT Code Diagnosis ICD10 Code Diagnosis Note [id number] Margie Hutchinson [facility] [address] [address] 10/01/2024 11:42:45 10/01/2024 12:13:48 Nausea and vomiting 24256032 R11.2 [id number] [facility] [address] [address] 10/13/2024 09:13:11 10/13/2024 10:08:50 Hypothyroidism in 516008043 E03.9 Z3A.34 [id number] Margie Hutchinson [facility] [address] [address] 10/13/2024 09:13:25 10/13/2024 10:51:30 Gestation period, 34 weeks 77675036 Z3A.34 [id number] Edith Welsh [facility] [address] [address] 10/20/2024 15:52:42 10/21/2024 09:39:53 Maternal obesity complicating , childbirth and the puerperium, antepartum 5225176735 07 O99.213 [id number] Cristine Singh [place] [address] [address] 10/20/2024 15:53:06 10/20/2024 17:47:24 Hypothyroidism in 290845293 O99.283 Z3A.35 [id number] Margie Hutchinson [facility] [address] [address] 10/20/2024 15:53:20 10/21/2024 00:46:19 Gestation period, 35 weeks 40377221 Z3A.35 [id number] [facility] [address] [place] [address] 10/27/2024 09:17:27 10/27/2024 10:09:57 Hypothyroidism in 520398215 O99.283 Z3A.36 [id number] Margie Hutchinson CNM [place] [address] [address] 10/27/2024 09:17:40 10/27/2024 10:37:52 Gestation period, 36 weeks 83489919 Z3A.36 Health Concerns Section Related Observation LastModified by Organization Detai ls LastModified Time None Recorded Concern Status LastModified by Organization Details LastModified Time None Recorded Payers Encounter Date Sequence Insurance Name Policy Number Policy Rodriguez Covered Member ID Rodriguez Member ID Guarantor Name 10/27/2024 1 [employer]: [place] [id number] Kaushal Lynch [id number] Jessi Lynch OBGyn Episode Ob Episode Information Episode Created Date Number of Fetuses Patient Bloodtype Patient rh Status Prepregnancy Weight lbs Domestic Partner Domestic Partner Phone Father Name [employer] Status 05/12/20 24 1 A Positive 186 Kaushal Montgomery en OPEN Fetus Data First Name Last Name Admitted to NICU Weight (g) Sex Living Outcome Pediatric Complications Fetus ID Race Codes Race Delivery Type [id number] Problems Problem Notes declines cf/sma/niptAnterior Placenta Problem Name Start Date End Date Resolution Snomed Code Not e Hypothyroidism 08/09/2024 [id number] Levo thyroxine 25mcg rpt 4 weeks. testing [...] Date Ultra Sound Latest Days Gestation 0 [email or web address] 05/13/2024 11/22/19 25 0 Pre- Flowsheet Flowsheet Date 05/12/2024 Patel Score Blood Edema Fundus Height Fundus Units Glucose Ketones Leukocytes Nitrite Labor Signs Protein Cervic Dilation Cervic Effacement Cervic Station Type Weight in lbs Pre/Post Dialysis Refused Weight 185.615313229102 BP Diastolic BP Location Tested BP Systolic [...] Type Weight in lbs Pre/Post Dialysis Refused 184.219711196067 BP Diastolic BP Location Tested BP Systolic [...] Type Weight in lbs Pre/Post Dialysis Refused 191.100238278833 BP Diastolic BP Location Tested BP Systolic [...] Type Weight in lbs Pre/Post Dialysis Refused 199.936118772227 BP Diastolic BP Location Tested BP Systolic [...] Type Weight in lbs Pre/Post Dialysis Refused 206.150348972362 BP Diastolic BP Location Tested BP Systolic [...] Type Weight in lbs Pre/Post Dialysis Refused 204.520940269096 BP Diastolic BP Location Tested BP Systolic BP Type 71 109 Fetus Heart Rate Present Fetus Movement A Yes Comments Patient is having contractio ns, swelling, nausea and vomiting. reviewed precautions and education,+FM, would like IOL around 18 roscoe, f/u 2 weeks Flowsheet Date 10/01/2024 Patel Score Blood Edema Fundus Height Fundus Units Glucose Ketones Leukocytes Nitrite Labor Signs Protein Cervic Dilation Cervic Effacement Cervic Station 33 cm Type Weight in lbs Pre/Post Dialysis Refused Weight 203.046967602407 BP Diastolic BP Location Tested BP Systolic [...] Weight in lbs Pre/Post Dialysis Refused Weight 205.756824769403 BP Diastolic BP Location Tested BP Systolic [...] Weight in lbs Pre/Post Dialysis Refused Weight 207.256971797999 BP Diastolic BP Location Tested BP Systolic BP Type 84 136 Fetus Heart Rate Present Fetus Movement Comments Flowsheet Date 10/20/2024 Patel Score Blood Edema Fundus Height Fundus Units Glucose Ketones Leukocytes Nitrite Labor Signs Protein Cervic Dilation Cervic Effacement Cervic Station Type Weight in lbs Pre/Post Dialysis Refused 207.453379700760 BP Diastolic BP Location Tested BP Systolic BP Type 84 L arm 136 sitting Fetus Heart Rate Present Fetus Movement Comments Flowsheet Date 10/20/2024 Patel Score Blood Edema Fundus Height Fundus Units Glucose Ketones Leukocytes Nitrite Labor Signs Protein Cervic Dilation Cervic Effacement Cervic Station trace Type Weight in lbs Pre/Post Dialysis Refused 207.279778609549 BP Diastolic BP Location Tested BP Systolic [...] Weight in lbs Pre/Post Dialysis Refused Weight 207.963710052340 BP Diastolic BP Location Tested BP Systolic [...]
--- NOTE | 2024-10-27 10:19 | PC.NURSE ---
Dajuan Hutchinson CNM notified of pt's negative ROM plus. Orders received to discharge pt home.
[2024-10-27 10:21] LABS: OBXCEM ROM Plus Negative (Negative)
== END 2024-10-27 10:22 | disposition home or self-care (01) ==
LOC: ANHOBOP 09:37 → ANHOBPP 09:39
PROVIDERS: Visit Provider Advanced Practice Midwife
DX: O41.8X90 Other specified disorders of amniotic fluid and membranes, unspecified trimester, not applicable or unspecified (principal); Z3A.00 Weeks of gestation of pregnancy not specified
CPT/HCPCS: 84112; 99199

== ENCOUNTER 2024-11-10 09:03 | Inpatient (IN) | payer BC, SELFPAY ==
[2024-11-10] VITALS (99 sets, daily range): BP systolic 98–145; BP diastolic 53–95; PULSE 71–110; TEMP 36.6–36.8; O2SAT 97–100; BMI 33.0
--- NOTE | 2024-11-10 09:28 | LDADM ---
This patient, Jessi Lynch, was admitted to Labor/Delivery/Recovery 105 on 11/10/24 at 09:03. Plans for labor, pain management and were discussed with patient. Patient/family oriented to hospital policies and general routines including ID bracelet, bed and alarms, visiting hours, pain management, procedures, bathroom and other care routines, personal items, smoking policy, room service/diet and guest tray routines, infant security routines, and visiting hours. Patient/Family are encouraged to report perceived risks to care and to ask questions if they do not understand what they are told or what they should do. See OBIX for further documentation.
--- OUTSIDE RECORDS SUMMARY | 2024-11-10 09:43 | XMS_ITS | Continuity of Care Document ---
Author Organization [facility] Address [address] [place] [address] [place] [address] Assessment No assessment recorded. Plan of Treatment Reminders Order Date Submit Date Provider Last Modified By Organization Details Last Modified Time Details Appointments U/S OB GROWTH 2024 08:30A M ULTRASOUND [...] Imaging US, obstetr ic, biophys ical profile [facility] [address], [place], [address], 11/10/2024 10:22:14 US, obstetr ic, follow- up [email or web address] [place], [place] [id number], [address], [place], [address], 11/10/2024 10:05:55 Medication Orders None recorde d. Patient TargetsNo targets recorded. Patient InstructionsNo instructions recorded. Reason for Referral None Reported. Results Created Date Observation Date Name Description Value Unit Range Abnormal Flag Note LastModifiedBy Organization Detail LastModifiedTime 05/12/20 24 05/12/2024 US, obste tric, nucha l trans lucen cy No observ ation record ed. eric [facility] [address], [place], [address], 05/12/2024 18:31:37 05/12/20 24 05/12/2024 US, obste tric, nucha l trans lucen cy No observ ation record ed. [email or web address] [address], [place], [address], 05/12/2024 21:43:48 07/07/2007/07/2024 US, obste tric, 2nd or 3rd trime ster No observ ation record ed. [email or web address] [facility] [address], [place], [address], 07/07/2024 11:18:40 07/07/2007/07/2024 US, obste tric, follo w-up No observ ation record ed. [email or web address] [address], [place], [address], 07/08/2024 14:51:45 08/04/20 24 08/04/2024 US, obste tric, follo w-up No observ ation record ed. [email or web address] [address], [place], [address], 08/19/2024 21:51:39 08/04/20 24 08/04/2024 US, obste tric, follo w-up No observ ation record ed. [email or web address] [facility] [address], [place], [address], 08/04/2024 13:12:30 10/13/19 25 10/13/2024 US, obste tric, follo w-up No observ ation record ed. [email or web address] [facility] [address], [place], [address], 10/13/2024 13:09:19 10/13/19 25 10/13/2024 US, obste tric, follo w-up No observ ation record ed. [email or web address] [address], [place], [address], 10/13/2024 16:17:31 10/20/19 25 10/20/2024 US, obste tric, bioph ysica l profi le + non-s tress test No observ ation record ed. [email or web address] [place] [address], [place], [address], 10/20/2024 18:47:14 10/20/19 25 10/20/2024 US, obste tric, bioph ysica l profi le + non-s tress test No observ ation record ed. [email or web address] [address], [place], [address], 10/20/2024 21:22:41 10/20/19 25 10/20/2024 non-s tress test No observ ation record ed. [facility] [address], [place], [address], 10/20/2024 21:09:03 10/27/19 25 10/27/2024 US, obste tric, bioph ysica l profi le + non-s tress test No observ ation record ed. [email or web address] [facility] [address], [place], [address], 10/27/2024 10:14:40 10/27/19 25 10/27/2024 US, obste tric, bioph ysica l profi le + non-s tress test No observ ation record ed. [email or web address] [address], [place], [address], 10/27/2024 22:52:49 10/27/19 25 10/27/2024 non-s tress test No observ ation record ed. [email or web address] [place] [address], [place], [address], 10/27/2024 20:44:47 11/03/19 25 11/03/2024 non-s tress test No observ ation record ed. [email or web address] [facility] [address], [place], [address], 11/03/2024 12:58:00 11/03/19 25 11/03/2024 US, obste tric, bioph ysica l profi le + non-s tress test No observ ation record ed. [email or web address] [facility] [address], [place], [address], 11/03/2024 13:27:06 11/03/19 25 11/03/2024 US, obste tric, bioph ysica l profi le + non-s tress test No observ ation record ed. [email or web address] [address], [place], [address], 11/03/2024 21:27:37 11/03/19 25 11/03/2024 non-s tress test No observ ation record ed. [email or web address] [facility] [address], [place], [address], 11/03/2024 18:40:26 11/03/19 non-s tress test No observ ation record ed. [email or web address] [facility] [address], [place], [address], 11/03/2024 18:46:19 02/05/10/20/2024 non-s tress test No observ ation record ed. [email or web address] [facility] [address], [place], [address], 11/03/2024 18:48:59 11/10/19 25 US, obste tric, bioph ysica l profi le No observ ation record ed. [facility] [address], [place], [address], 11/10/2024 10:01:17 11/10/19 25 US, obste tric, follo w-up No observ ation record ed. [facility] [address], [place], [address], 11/10/2024 10:01:21 11/10/19 25 11/10/2024 US, obste tric, bioph ysica l profi le No observ ation record ed. [email or web address] [address], [place], [address], 11/10/2024 10:22:14 Result Notes None recorded. Problems Name Problem SNOMED Code Status Onset Date Resolution Date Notes Provider Name and Address Organization Details Recorded Time 20693157 Active 2023 Edith Anitha [facility] 17:04:33 Hypothyroi dism 99594902 Active 2023 Levothyrox ine 25mcg rpt 4 weeks. testing 34w Pearl Nicolas [facility] 4 14:04:46 Problem Notes None recorded. Procedures Surgical History Date Name Laterality Status Provider Name and Address Organization Details Recorded Time 01/27/20 24 SUCTION DILATION & CURETTAGE (SURG) completed Bunny Cat [facility] 01/29/2024 09:59:12 06/11/20 23 IUD Removal completed JOHNNY Broderick [address], [place], [address], [place] [facility] 06/11/2023 10:31:18 06/11/20 23 Date of Last Pap Smear completed Edith Welsh [facility] 01/09/2024 11:26:24 09/29/18 99 Tonsillectomy completed Edith Welsh [facility] 01/09/2024 11:53:32 Imaging Results Imaging Date Name Status LastModified by Organiz ation Details LastModified Time 11/10/2024 US, obstetric, biophysical profile active [facility] [address], [place], [address], 11/10/2024 10:01:17 11/10/2024 US, obstetric, follow-up active [facility] [address], [place], [address], 11/10/2024 10:01:21 Procedure Notes None recorded. Medical Equipment None Reported. Allergies No known drug allergies Medications Name Sig Start Date Stop Date Status Note LastModified by Organization Details LastModified Time levothyroxin e 25 mcg tablet TAKE 1 TABLET BY MOUTH EVERY DAY DIRECTED 2024 active Not Available Not Available Not Avai lable ondansetron 4 mg disintegrati ng tablet Place 1 tablet every 4-6 hours by translingua l route. 2024 active Not Available Not Available Not Avai lable Vitals Date Recorded Body weight Body mass index (BMI) Body height Systolic blood pressure Diastolic blood pressure Provider Name and Address Organization Details Last Updated DateTime 11/10/2024 34579.99 007 g 33 kg/m2 170.18 cm 149 mm[Hg] 89 mm[Hg] Edith Welsh [facility] 09:55:31 Social History Question Answer Notes LastModified by Organizat ion Details LastModified Time Tobacco Smoking Status Never Smoker Edith sharma, [facility] 01/09/2024 11:53:25 What Is Your Level Of Alcohol Consumption? None [email or web address] Information not available 01/09/2024 If You Are , What Was Your Level Of Alcohol Consumption Prior To ? Occasional [email or web address] Information not available 01/09/2024 How Many Years [...] Or Vape? Former User Of Electronic Cigarettes [email or web address] Information not available 01/09/2024 What Is The Highest Grade Or Level Of School You Have Completed Or The Highest Degree You Have Received? 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 [id number] Information not available 06/11/2023 Do You Use Any Illicit Or Recreational Drugs? No [email or web address] Information not available 05/12/2024 Do You Use Sunscreen Routinely? Yes Information not available 06/11/2023 Has Tobacco Cessation Counseling Been Provided? No [email or web address] Information not available 01/09/2024 Have You Used IV Drugs? No Information not available 06/11/2023 Do You Or Have You Ever Used Any Other Forms Of Tobacco Or Nicotine? Yes [email or web address] Information not available 01/09/2024 Sex: Unknown Functional [...] SNOMED-CT Code Diagnosis ICD10 Code Diagnosis Note [id number] Lucita Lottroman [facility] [address],[place] [address] 10/13/2024 09:13:11 10/13/2024 10:08:50 Hypothyroidism in 708790793 E03.9 Z3A.34 [id number] Magrie Hutchinson [facility] [address] [place] [address] 10/13/2024 09:13:25 10/13/2024 10:51:30 Gestation period, 34 weeks 90110563 Z3A.34 [id number] Edith Welsh [facility] [address],[place] [address] 10/20/2024 15:52:42 10/21/2024 09:39:53 Maternal obesity complicating , childbirth and the puerperium, antepartum 1255770549 07 O99.213 [id number] Cristine Singh [facility] [address],[place] [address] 10/20/2024 15:53:06 10/20/2024 17:47:24 Hypothyroidism in 031218985 O99.283 Z3A.35 [id number] Margie Hutchinson [facility] [address],[place] [address] 10/20/2024 15:53:20 10/21/2024 00:46:19 Gestation period, 35 weeks 41296196 Z3A.35 [id number] Edith Welsh [facility] [address],[place] [address] 10/27/2024 09:13:30 10/28/2024 09:16:54 Hyp[address]89 E03.[id number] [facility] [address] [place] [address] 10/27/2024 09:17:27 10/27/2024 10:09:57 Hypothyroidism in 910062030 O99.283 Z3A.36 [id number] Margie Hutchinson [facility] [address],[place] [address] 10/27/2024 09:17:40 10/27/2024 10:37:52 Gestation period, 36 weeks 00528725 Z3A.[id number] [facility] [address],[place] [address] 11/03/2024 11:41:18 11/03/2024 13:09:51 Hypothyroidism 026[address]57 E03.[id number] [facility] [address] [place] [address] 11/03/2024 11:41:36 11/03/2024 13:31:58 Hypothyroidism in 526362680 O99.283 Z3A.37 [id number] Margie Hutchinson [facility] [address] [place] [address] 11/03/2024 11:41:57 11/03/2024 13:56:21 Gestation period, 37 weeks 91217134 Z3A.[id number] [facility] [address] [place] [address] 11/10/2024 09:18:34 11/10/2024 10:05:55 Hypothyroidism in 899115297 O99.283 Z3A.38 [id number] Margie Hutchinson CNM [place] [address] [address] 11/10/2024 09:19:13 11/10/2024 10:13:52 Gestation period, 38 weeks 54711720 Z3A.38 Health Concerns Section Related Observation LastModified by Organization Detai ls LastModified Time None Recorded Concern Status LastModified by Organization Details LastModified Time None Recorded Payers Encounter Date Sequence Insurance Name Policy Number Policy Rodriguez Covered Member ID Rodriguez Member ID Guarantor Name 11/10/2024 1 [place] [id number] Kaushal Lynch [id number] Jessi Lynch OBGyn Episode Ob Episode Information Episode Created Date Number of Fetuses Patient Bloodtype Patient rh Status Prepregnancy Weight lbs Domestic Partner Domestic Partner Phone Father Name Hair Assistant Status 05/12/20 24 1 A Positive 186 Kaushal Montgomery en OPEN Fetus Data First Name Last Name Admitted to NICU Weight (g) Sex Living Outcome Pediatric Complications Fetus ID Race Codes Race Delivery Type [id number] Problems Problem Notes declines cf/sma/niptAnterior Placenta Problem Name Start Date End Date Resolution Snomed Code Not e Hypothyroidism 08/09/2024 90044648 Levo thyroxine 25mcg rpt 4 weeks. testing [...] Date Ultra Sound Latest Days Gestation 0 05/13/2024 11/22/19 25 0 Pre-hill Flowsheet Flowsheet Date 05/12/2024 Patel Score Blood Edema Fundus Height Fundus Units Glucose Ketones Leukocytes Nitrite Labor Signs Protein Cervic Dilation Cervic Effacement Cervic Station Type Weight in lbs Pre/Post Dialysis Refused Weight 185.940618081430 BP Diastolic BP Location Tested BP Systolic [...] Type Weight in lbs Pre/Post Dialysis Refused 184.287214224273 BP Diastolic BP Location Tested BP Systolic [...] Type Weight in lbs Pre/Post Dialysis Refused 191.510027012829 BP Diastolic BP Location Tested BP Systolic [...] Type Weight in lbs Pre/Post Dialysis Refused 199.604227903267 BP Diastolic BP Location Tested BP Systolic [...] Type Weight in lbs Pre/Post Dialysis Refused 206.200023618969 BP Diastolic BP Location Tested BP Systolic [...] Type Weight in lbs Pre/Post Dialysis Refused 204.942516632845 BP Diastolic BP Location Tested BP Systolic [...] Weight in lbs Pre/Post Dialysis Refused Weight 203.642038150991 BP Diastolic BP Location Tested BP Systolic [...] Weight in lbs Pre/Post Dialysis Refused Weight 205.464633382386 BP Diastolic BP Location Tested BP Systolic [...] Weight in lbs Pre/Post Dialysis Refused Weight 207.155739400443 BP Diastolic BP Location Tested BP Systolic BP Type 84 136 Fetus Heart Rate Present Fetus Movement Comments Flowsheet Date 10/20/2024 Patel Score Blood Edema Fundus Height Fundus Units Glucose Ketones Leukocytes Nitrite Labor Signs Protein Cervic Dilation Cervic Effacement Cervic Station Type Weight in lbs Pre/Post Dialysis Refused 207.090162866533 BP Diastolic BP Location Tested BP Systolic BP Type 84 L arm 136 sitting Fetus Heart Rate Present Fetus Movement Comments Flowsheet Date 10/20/2024 Patel Score Blood Edema Fundus Height Fundus Units Glucose Ketones Leukocytes Nitrite Labor Signs Protein Cervic Dilation Cervic Effacement Cervic Station trace Type Weight in lbs Pre/Post Dialysis Refused 207.592315551502 BP Diastolic BP Location Tested BP Systolic [...] Weight in lbs Pre/Post Dialysis Refused Weight 207.051577123132 BP Diastolic BP Location Tested BP Systolic BP Type 81 132 Fetus Heart Rate Present Fetus Movement Comments [...] Weight in lbs Pre/Post Dialysis Refused Weight 207.259464057143 BP Diastolic BP Location Tested BP Systolic BP Type 81 132 Fetus Heart Rate Present Fetus Movement A Yes Comments Patient is having some contr actions, discharge, swelling and nausea. to ld for r/o rupture, nst reassuring bpp 05/06 precautions and education, preadmit done f/u one week Flowsheet Date 11/03/2024 Patel Score Blood Edema Fundus Height Fundus Units Glucose Ketones Leukocytes Nitrite Labor Signs Protein Cervic Dilation Cervic Effacement Cervic Station Type Weight in lbs Pre/Post Dialysis Refused Weight 209.112587636820 BP Diastolic BP Location Tested BP Systolic BP Type 74 119 Fetus Heart Rate Present Fetus Movement Comments Flowsheet Date 11/03/2024 Patel Score Blood Edema Fundus Height Fundus Units Glucose Ketones Leukocytes Nitrite Labor Signs Protein Cervic Dilation Cervic Effacement Cervic Station Type Weight in lbs Pre/Post Dialysis Refused BP Diastolic BP Location Tested BP Systolic BP Type Fetus Heart Rate Present Fetus Movement Comments Flowsheet Date 11/03/2024 Patel Score Blood Edema Fundus Height Fundus Units Glucose Ketones Leukocytes Nitrite Labor Signs Protein Cervic Dilation Cervic Effacement Cervic Station neg trace Type Weight in lbs Pre/Post Dialysis Refused 209.633403714719 BP Diastolic BP Location Tested BP Systolic BP Type 74 119 Fetus Heart Rate Present Fetus Movement A Yes Comments Patient is having some contr actions, discharge, swelling and nausea. Flowsheet Date 11/10/2024 Patel Score Blood Edema Fundus Height Fundus Units Glucose Ketones Leukocytes Nitrite Labor Signs Protein Cervic Dilation Cervic Effacement Cervic Station Type Weight in lbs Pre/Post Dialysis Refused BP Diastolic BP Location Tested BP Systolic BP Type Fetus Heart Rate Present Fetus Movement Comments Flowsheet Date 11/10/2024 Patel Score Blood Edema Fundus Height Fundus Units Glucose Ketones Leukocytes Nitrite Labor Signs Protein Cervic Dilation Cervic Effacement Cervic Station Type Weight in lbs Pre/Post Dialysis Refused 211.208606834108 BP Diastolic BP Location Tested BP Systolic BP Type 89 149 Fetus Heart Rate Present Fetus Movement A Yes Comments sent to labor and delivery. discussed IOL for oligohydramnios Menstrual History Last Menstrual Date Menses Monthly On Bcp Conception Prior Menses Frequency Hcg Plus Date Menarche Onset Age Delivery Information Delivery Date Delivery Type Labor Anesthesia Weeks Gestation Incision Type Labor Labor Length Hrs Delivered By Post Complications Tubal Sterilization Discharge Date Comments Discharge Information Feeding Method Contraceptive Method Maternal HG B and HCT Levels
--- OUTSIDE RECORDS SUMMARY | 2024-11-10 09:43 | XMS_ITS | Data Portability ---
Author Organization [facility] Address [address] [place] [address] [place] [address] Assessment Encounter Date Assessment Date Assessment LastModified by Organization Details LastModified Time 11/03/2024 11/03/2024 Patient is ___weeks . Discussed plan. [email or web address] Not available 11/03/2024 13:14:23 11/10/2024 11/10/2024 Patient is _38__weeks . Discussed plan. [email or web address] Not available 11/10/2024 10:08:07 Plan of Treatment Reminders Order Date Submit [...] + non-str ess test 2024 025 [email or web address] [address], [address], [place], [address], 11/03/2024 20:09:28 non-str ess test 2024 025 [email or web address] [address], [address], [place], [address], 11/04/2024 07:43:13 US, obstetr ic, biophys ical profile 2024 025 KORTNEY [address], [address], [place], [address], 11/10/2024 10:22:14 US, obstetr ic, follow- up 2024 025 [email or web address] [address], [address], [place], [address], 11/10/2024 10:05:55 Medication Orders None recorde d. Patient TargetsNo targets recorded. Patient InstructionsNo instructions recorded. Reason for Referral None Reported. Results Created Date Observation Date Name Description Value Unit Range Abnormal Flag Note LastModifiedBy Organization Detail LastModifiedTime 10/13/1910/13/2024 TSH, REFLE X FREE T4 TSH 4.09 uIU/m L 0.30-5 .33 Not Available [facility] (Lab) [address], [place], [address], 10/14/2024 08:10:07 10/20/19 25 10/20/2024 CULTU RE: [...] Final resul t Abnor mal: No Resul ting Lab: [facility] [address] [facility] [address] Tel: CULTU RE ----- ----- ----- --- No Group B strep isola heidi at 2 days (reji ctive broth ace danielle t) Not Available [facility] (Lab) [address], [place], [address], 10/23/2024 12:41:08 10/13/19 25 10/13/2024 US, obste tric, follo w-up No observ ation record ed. [email or web address] [place] [address], [place], [address], 10/13/2024 13:09:19 10/13/19 25 10/13/2024 US, obste tric, follo w-up No observ ation record ed. [email or web address] [address], [place], [address], 10/13/2024 16:17:31 10/20/19 25 10/20/2024 US, obste tric, bioph ysica l profi le + non-s tress test No observ ation [facility]. [facility] [address], [place], [address], 10/20/2024 18:47:14 10/20/19 25 10/20/2024 US, obste tric, bioph ysica l profi le + non-s tress test No observ ation record ed. [email or web address] [address], [place], [address], 10/20/2024 21:22:41 10/20/19 25 10/20/2024 non-s tress test No observ ation record ed. [email or web address] [place] [address], [place], [address], 10/20/2024 21:09:03 10/27/19 25 10/27/2024 US, obste tric, bioph ysica l profi le + non-s tress test No observ ation record ed. [email or web address] [place] [address], [place], [address], 10/27/2024 10:14:40 10/27/19 25 10/27/2024 US, obste tric, bioph ysica l profi le + non-s tress test No observ ation record ed. [email or web address] [address], [place], [address], 10/27/2024 22:52:49 10/27/19 25 10/27/2024 non-s tress test No observ ation record ed. [email or web address] [address], [place], [address], 10/27/2024 20:44:47 11/03/19 25 11/03/2024 non-s tress test No observ ation record ed. [address], [place], [address], 11/03/2024 12:58:00 11/03/19 25 11/03/2024 US, obste tric, bioph ysica l profi le + non-s tress test No observ ation record ed. [email or web address] [address], [place], [address], 11/03/2024 13:27:06 11/03/19 25 11/03/2024 US, obste tric, bioph ysica l profi le + non-s tress test No observ ation record ed. [email or web address] [address], [place], [address], 11/03/2024 21:27:37 11/03/19 25 11/03/2024 non-s tress test No observ ation record ed. [email or web address] [address], [place], [address], 11/03/2024 18:40:26 11/03/19 25 non-s tress test No observ ation record ed. [email or web address] [address], [place], [address], 11/03/2024 18:46:19 11/03/19 25 10/20/2024 non-s tress test No observ ation record ed. [email or web address] [address], [place], [address], 11/03/2024 18:48:59 11/10/19 25 US, obste tric, bioph ysica l profi le No observ ation record ed. [facility] [address], [place], [address], 11/10/2024 10:01:17 11/10/19 25 US, obste tric, follo w-up No observ ation record ed. [facility] [address], [place], [address], 11/10/2024 10:01:21 11/10/19 25 11/10/2024 US, obste tric, bioph ysica l profi le No observ ation record ed. [email or web address] [address], [place], [address], 11/10/2024 10:22:14 Result Notes None recorded. Problems Name Problem SNOMED Code Status Onset Date Resolution Date Notes Provider Name and Address Organization Details Recorded Time 00003568 Active 2023 Edith Welsh [facility], [facility] 17:04:33 Hypothyroi dism 77373964 Active 2023 Levothyrox ine 25mcg rpt 4 weeks. testing 34w Pearl Nicolas null, [facility] 14:04:46 Problem Notes None recorded. Procedures Surgical History Date Name Laterality Status Provider Name and Address Organization Details Recorded Time 01/27/20 24 SUCTION DILATION & CURETTAGE (SURG) completed Bunny Cat [facility] 01/29/2024 09:59:12 06/11/20 23 IUD Removal completed JOHNNY Broderick [address], [place], [address], [place] [facility] 06/11/2023 10:31:18 06/11/20 23 Date of Last Pap Smear completed Edith Welsh [facility] 01/09/2024 11:26:24 09/29/18 99 Tonsillectomy completed Edith Welsh [facility] 01/09/2024 11:53:32 Imaging Results Imaging Date Name Status LastModified by Organiz ation Details LastModified Time 10/13/2024 US, obstetric, follow-up completed [email or web address] [place] [address], [place], [address], 10/13/2024 13:09:19 10/13/2024 US, obstetric, follow-up completed [email or web address] [address], [place], [address], 10/13/2024 16:17:31 10/20/2024 US, obstetric, biophysical profile + non-stress test completed [email or web address] [place] [address], [place], [address], 10/20/2024 18:47:14 10/20/2024 US, obstetric, biophysical profile + non-stress test completed [email or web address] [address], [place], [address], 10/20/2024 21:22:41 10/20/2024 non-stress test completed [email or web address] [address], [place], [address], 10/20/2024 21:09:03 10/27/2024 US, obstetric, biophysical profile + non-stress test completed [email or web address] [address], [place], [address], 10/27/2024 10:14:40 10/27/2024 US, obstetric, biophysical profile + non-stress test completed [email or web address] [address], [place], [address], 10/27/2024 22:52:49 10/27/2024 non-stress test completed [email or web address] [address], [place], [address], 10/27/2024 20:44:47 11/03/2024 non-stress test completed [email or web address] [address], [place], [address], 11/03/2024 12:58:00 11/03/2024 US, obstetric, biophysical profile + non-stress test completed [address], [place], [address], 11/03/2024 13:27:06 11/03/2024 US, obstetric, biophysical profile + non-stress test completed [email or web address] [address], [place], [address], 11/03/2024 21:27:37 11/03/2024 non-stress test completed [email or web address] [place], [place], [address], 11/03/2024 18:40:26 11/03/2024 non-stress test completed [email or web address] [address], [place], [address], 11/03/2024 18:46:19 10/20/2024 non-stress test completed [email or web address] [address], [place], [address], 11/03/2024 18:48:59 11/10/2024 US, obstetric, biophysical profile active [facility] [address], [place], [address], 11/10/2024 10:01:17 11/10/2024 US, obstetric, follow-up active [facility] [address], [place], [address], 11/10/2024 10:01:21 11/10/2024 US, obstetric, biophysical profile active [email or web address], [place], [address], 11/10/2024 10:22:14 Procedure Notes None recorded. Medical Equipment None [...] height Body mass index (BMI) Body weight Body weight Body mass index (BMI) Body height Systolic blood pressure Diastolic blood pressure Systolic blood pressure Diastolic blood pressure Provider Name and Address Organization Details Last Updated DateTime 170.18 cm 32.7 kg/m2 09488.8 1 g 62598.8 0533 g 32.7 kg/m2 170.18 cm 119 mm[Hg] 74 mm[Hg] 119 mm[Hg] 74 mm[Hg] Edith Welsh [facility] 13:14:57 Date Recorded Body weight Body mass index (BMI) Body height Systolic blood pressure Diastolic blood pressure Provider Name and Address Organization Details Last Updated DateTime 11/10/2024 76632.99 007 g 33 kg/m2 170.18 cm 149 mm[Hg] 89 mm[Hg] Edith Welsh [facility] 09:55:31 Social History Question Answer Notes LastModified by Organizat ion Details LastModified Time Tobacco Smoking Status Never Smoker Edith Welsh [facility], [facility] 01/09/2024 11:53:25 What Is Your Level Of Alcohol Consumption? None [email or web address] Information not available 01/09/2024 If You Are , What Was Your Level Of Alcohol Consumption Prior To ? Occasional [email or web address] Information not available 01/09/2024 How Many Years [...] Or Vape? Former User Of Electronic Cigarettes [email or web address] Information not available 01/09/2024 What Is The Highest Grade Or Level Of School You Have Completed Or The Highest Degree You Have Received? [id number] Information not available 06/11/2023 What Is Your Occupation? [employer] [email or web address] Information not available 05/12/2024 Are There Any [...] Anxious, Or Unable To Sleep At Night)? [id number] Information not available 06/11/2023 Do You Use Any Illicit Or Recreational Drugs? No Information not available 05/12/2024 Do You Use Sunscreen Routinely? Yes Information not available 06/11/2023 Has Tobacco Cessation Counseling Been Provided? No [email or web address] Information not available 01/09/2024 Have You Used IV Drugs? No Information not available 06/11/2023 Do You Or Have You Ever Used Any Other Forms Of Tobacco Or Nicotine? Yes [email or web address] Information not available 01/09/2024 Sex: Unknown Functional [...] SNOMED-CT Code Diagnosis ICD10 Code Diagnosis Note [id number] JOHNNY Broderick [place] [address] [address] 06/11/2023 09:47:19 06/11/2023 10:36:53 Screening procedure 87201103 Z13.9 Gynecologi c examination 88187306 Z01.419 Take Calcium with Vitamin D 1200mg [...] paper copy of today's plan if desired. [facility] - Mirena IUD, inserted 11/2018wou ld like IUD removed today to TTCUPT (-), consent reviewed and signedIUD removed (see procedure note)encou raged daily PNV starting now, discussed timed ICpap updatedSTI testing declineden couraged annual exam with PCP Removal of intrauterine device 54106684 Z30.432 [id number] [facility] [address],[place] [address] 01/06/2024 11:58:33 01/06/2024 13:07:24 [id number] [facility] [address] [address] 01/09/2024 11:24:54 01/09/2024 12:15:45 Amenorrhea 47047399 N91.2 reviewed us and office, precaution s , educationp ap up to datevegan, eats cheese, discussed b12 with labsf/u rpt screening 2 weeksthen new ob and first look at 12 weeksok to continue with exercise Venereal d isease screening 312321856 Z11.3 [id number] [facility] [address],[place] [address] 01/22/2024 12:21:31 01/22/2024 13:35:21 Missed miscarriage 64500144 O02.1 Incomplete miscarriage 912550176 O03.4 Z3A.10 [id number] Zen Corcoran MD [place] [address],[place] [address] 01/23/2024 10:59:17 01/23/2024 12:40:53 Incomplete miscarriage 246929363 O03.4 Z3A.10 this patient is a 28-year-ol d female with incomplete miscarriag e. We have agreed to perform suction D&C. She understand s risks, benefits, and alternativ es. She is completed the informed consent process and is ready to proceed. We made a decision to perform surgery today. [id number] Zen Corcoran MD [place] [address],[place] [address] 02/03/2024 12:00:04 02/03/2024 12:46:13 Incomplete miscarriage 042478536 O03.4 Z3A.10 this patient presents for postop follow-up. She is 1 week postop from a suction D&C. She is recovering normally. Her bleeding is minimal. She has no foul-smell ing vaginal discharge. She denies any nausea, vomiting, fever, chills. We discussed contracept ion. We discussed future . She will follow up for a repeat test. Procedure was performed for incomplete miscarriag e [id number] [facility] [address],[place] [address] 04/29/2024 11:24:12 04/29/2024 12:03:18 screening 432080352 Z36.87 Z3A.10 [id number] [facility] [address],[place] [address] 05/12/2024 15:48:46 05/12/2024 16:49:05 screening 776768409 Z36.82 Z3A.12 [id number] [facility] [address],[place] [address] 05/12/2024 15:49:08 05/12/2024 17:09:17 Gestation period, 12 weeks 93546825 Z3A.12 Routine an tenatal care 528038401 Z34.90 Venereal d isease screening 370782200 Z11.3 [id number] [facility] [address],[place] [address] 06/09/2024 09:53:50 06/09/2024 11:24:02 Fatigue 66333073 R53.83 Routine an tenatal care 679667039 Z34.90 [id number] Cristine Singh [place] [address],[place] [address] 07/07/2024 09:14:33 07/07/2024 10:40:43 screening for malformation 192093126 Z36.3 Z3A.20 041946 Margie Hutchinson [facility] [address],[place] [address] 07/07/2024 09:16:42 07/07/2024 10:53:25 Gestation period, 20 weeks 62013711 Z3A.20 [id number] [facility] [address],[place] [address] 08/04/2024 11:44:32 08/04/2024 13:21:42 screening 298897727 Z36.2 Z3A.24 [id number] [facility] [address],[place] [address] 08/04/2024 11:45:19 08/04/2024 13:21:34 Anxiety 60816217 F41.9 Weight increased 1782157 00 R63.5 [id number] [facility] [address],[place] [address] 09/01/2024 09:25:14 09/01/2024 10:33:17 Gestation period, 28 weeks 18853313 Z3A.28 [id number] [facility] [address],[place] [address] 09/17/2024 10:09:34 09/17/2024 10:54:03 Gestation period, 30 weeks 89523288 Z3A.30 [id number] Margie Hutchinson [facility] [address],[place] [address] 10/01/2024 11:42:45 10/01/2024 12:13:48 Nausea and vomiting 96179105 R11.2 [id number] [facility] [address],[place] [address] 10/13/2024 09:13:11 10/13/2024 10:08:50 Hypothyroidism in 630334861 E03.9 Z3A.34 [id number] Margie Hutchinson [facility] [address],[place] [address] 10/13/2024 09:13:25 10/13/2024 10:51:30 Gestation period, 34 weeks 73957407 Z3A.34 [id number] Edith Welsh [place] [address],[place] [address] 10/20/2024 15:52:42 10/21/2024 09:39:53 Maternal obesity complicating , childbirth and the puerperium, antepartum 1535135935 07 O99.213 144159 [facility] [address],[place] [address] 10/20/2024 15:53:06 10/20/2024 17:47:24 Hypothyroidism in 377069191 O99.283 Z3A.35 [id number] Margie Hutchinson [facility] [address],[place] [address] 10/20/2024 15:53:20 10/21/2024 00:46:19 Gestation period, 35 weeks 50875572 Z3A.35 [id number] Edith Welsh [place] [address],[place] [address] 10/27/2024 09:13:30 10/28/2024 09:16:54 Hypothyroidism 31327486 E03.9 [id number] [facility] [address],[place] [address] 10/27/2024 09:17:27 10/27/2024 10:09:57 Hypothyroidism in 473133746 O99.283 Z3A.36 [id number] Margie Hutchinson [facility] [address],[place] [address] 10/27/2024 09:17:40 10/27/2024 10:37:52 Gestation period, 36 weeks 60842366 Z3A.36 [id number] Edith Welsh [place] [address] [address] 11/03/2024 11:41:18 11/03/2024 13:09:51 Hypothyroidism 98754737 E03.9 [id number] [facility] [address],[place] [address] 11/03/2024 11:41:36 11/03/2024 13:31:58 Hypothyroidism in 630970424 O99.283 Z3A.37 941957 Margie Hutchinson [facility] [address] [address] 11/03/2024 11:41:57 11/03/2024 13:56:21 Gestation period, 37 weeks 52813631 Z3A.37 [id number] [facility] [address] [place] [address] 11/10/2024 09:18:34 11/10/2024 10:05:55 Hypothyroidism in 130261949 O99.283 Z3A.38 286266 Margie Hutchinson [facility] [address] [place] [address] 11/10/2024 09:19:13 11/10/2024 10:13:52 Gestation period, 38 weeks 01740718 Z3A.38 Health Concerns Section Related Observation LastModified by Organization Detai ls LastModified Time None Recorded Concern Status LastModified by Organization Details LastModified Time None Recorded Advance Directives Directive None Recorded Payers Encounter Date Sequence Insurance Name Policy Number Policy Rodriguez Covered Member ID Rodriguez Member ID Guarantor Name 11/03/2024 1 [place] [id number] Kaushal Lynch [id number] 21 Jessi Cris 11/03/2024 1 [place] [id number] Kaushal Lynch [id number] 21 Jessi Cris 11/03/2024 1 [place] [id number] Kaushal Cris [id number] 21 Jessi Cris 11/10/2024 1 [place] [id number] Kaushal Cris [id number] 21 Jessi Cris 11/10/2024 1 [place] [id number] Kaushal Lynch [id number] 21 Jessi Cris OBGyn Episode Ob Episode Information Episode Created Date Number of Fetuses Patient Bloodtype Patient rh Status Prepregnancy Weight lbs Domestic Partner Domestic Partner Phone Father Name Team Assistant Status 05/12/20 24 1 A Positive 186 Kaushal [place] en OPEN Fetus Data First Name Last Name Admitted to NICU Weight (g) Sex Living Outcome Pediatric Complications Fetus ID Race Codes Race Delivery Type [id number] Problems Problem Notes declines cf/sma/niptAnterior Placenta Problem Name Start Date End Date Resolution Snomed Code Not e Hypothyroidism 08/09/2024 15729212 Levo thyroxine 25mcg rpt 4 weeks. testing [...] Date Ultra Sound Latest Days Gestation 0 [email or web address] 05/13/2024 11/22/19 25 0 Pre-hill Flowsheet Flowsheet Date 05/12/2024 Patel Score Blood Edema Fundus Height Fundus Units Glucose Ketones Leukocytes Nitrite Labor Signs Protein Cervic Dilation Cervic Effacement Cervic Station Type Weight in lbs Pre/Post Dialysis Refused Weight 185.605338614616 BP Diastolic BP Location Tested BP Systolic [...] Type Weight in lbs Pre/Post Dialysis Refused 184.978441079986 BP Diastolic BP Location Tested BP Systolic [...] Type Weight in lbs Pre/Post Dialysis Refused 191.959738302442 BP Diastolic BP Location Tested BP Systolic [...] Type Weight in lbs Pre/Post Dialysis Refused 199.877472542331 BP Diastolic BP Location Tested BP Systolic [...] Type Weight in lbs Pre/Post Dialysis Refused 206.906975968735 BP Diastolic BP Location Tested BP Systolic [...] Type Weight in lbs Pre/Post Dialysis Refused 204.048770272531 BP Diastolic BP Location Tested BP Systolic BP Type 71 109 Fetus Heart Rate Present Fetus Movement A Yes Comments Patient is having contractio ns, swelling, nausea and vomiting. reviewed precautions and education,+FM, would like IOL around 18 orscoe, f/u 2 weeks Flowsheet Date 10/01/2024 Patel Score Blood Edema Fundus Height Fundus Units Glucose Ketones Leukocytes Nitrite Labor Signs Protein Cervic Dilation Cervic Effacement Cervic Station 33 cm Type Weight in lbs Pre/Post Dialysis Refused Weight 203.886915423749 BP Diastolic BP Location Tested BP Systolic [...] Weight in lbs Pre/Post Dialysis Refused Weight 205.353753480158 BP Diastolic BP Location Tested BP Systolic [...] Weight in lbs Pre/Post Dialysis Refused Weight 207.274242797195 BP Diastolic BP Location Tested BP Systolic BP Type 84 136 Fetus Heart Rate Present Fetus Movement Comments Flowsheet Date 10/20/2024 Patel Score Blood Edema Fundus Height Fundus Units Glucose Ketones Leukocytes Nitrite Labor Signs Protein Cervic Dilation Cervic Effacement Cervic Station Type Weight in lbs Pre/Post Dialysis Refused 207.862608323950 BP Diastolic BP Location Tested BP Systolic BP Type 84 L arm 136 sitting Fetus Heart Rate Present Fetus Movement Comments Flowsheet Date 10/20/2024 Patel Score Blood Edema Fundus Height Fundus Units Glucose Ketones Leukocytes Nitrite Labor Signs Protein Cervic Dilation Cervic Effacement Cervic Station trace Type Weight in lbs Pre/Post Dialysis Refused 207.480967304067 BP Diastolic BP Location Tested BP Systolic [...] Weight in lbs Pre/Post Dialysis Refused Weight 207.994747067972 BP Diastolic BP Location Tested BP Systolic [...] Weight in lbs Pre/Post Dialysis Refused Weight 207.003258866275 BP Diastolic BP Location Tested BP Systolic [...] Weight in lbs Pre/Post Dialysis Refused Weight 209.898333629693 BP Diastolic BP Location Tested BP Systolic [...] Type Weight in lbs Pre/Post Dialysis Refused 209.273001379938 BP Diastolic BP Location Tested BP Systolic [...] Type Weight in lbs Pre/Post Dialysis Refused 211.659524594748 BP Diastolic BP Location Tested BP Systolic [...] Domestic Partner Domestic Partner Phone Father Name Team Assistant Status 05/12/20 24 1 CLOSED Fetus Data First Name Last Name Admitted to NICU Weight (g) Sex Living Outcome Pediatric Complications Fetus ID Race Codes Race Delivery Type , Spontane ous 71051 Xavi Calculation Initial Xavi Date Initial Exam [...] Domestic Partner Domestic Partner Phone Father Name Team Assistant Status 06/11/20 23 1 CLOSED Fetus Data First Name Last Name Admitted to NICU Weight (g) Sex Living Outcome Pediatric Complications Fetus ID Race Codes Race Delivery Type 3316.66 4704 F Full Term [id number] Vaginal Delivery Xavi Calculation Initial Xavi Date [...]
--- OUTSIDE RECORDS SUMMARY | 2024-11-10 09:43 | XMS_ITS | Continuity of Care Document ---
Author Organization [facility] Address [address] [place] [address] Assessment Encounter Date Assessment Date Assessment LastModified by Organization Details LastModified Time 11/10/2024 11/10/2024 Patient is _38__weeks . Discussed plan. Not available 11/10/2024 10:08:07 Plan of Treatment Reminders Order Date Submit Date Provider Last Modified By Organization Details Last Modified Time Details Appointments U/S OB GROWTH 2024 08:30A M ULTRASOUND Not available Not available Not available OB ROUTINE 2024 09:30A M Margie Hutchinson CNM Not available Not available Not available INDUCTI ON 2024 05:00A M CABRERA HyattM Not available Not available [...] lucen cy No observ [facility]ion [facility] ed[facility] [address], [place], [address], 05/12/2024 18:31:37 05/12/2005/12/2024 US, obste tric, nucha l trans lucen cy No observ ation record ed. [email or web address] [address], [place], [address], 05/12/2024 21:43:48 07/07/2007/07/2024 US, obste tric, 2nd or 3rd trime ster No observ ation record ed. [email or web address] [place] [address], [place], [address], 07/07/2024 11:18:40 07/07/20 24 07/07/2024 US, obste tric, follo w-up No observ ation record ed. [email or web address] [address], [place], [address], 07/08/2024 14:51:45 08/04/20 24 08/04/2024 US, obste tric, follo w-up No observ ation record ed. [email or web address] [address], [place], [address], 08/19/2024 21:51:39 08/04/20 24 08/04/2024 US, obste tric, follo w-up No observ ation record ed. [email or web address] [place] [address], [place], [address], 08/04/2024 13:12:30 10/13/19 25 10/13/2024 US, obste tric, follo w-up No observ ation record ed. [email or web address] [place] [address], [place], [address], 10/13/2024 13:09:19 10/13/19 25 10/13/2024 US, obste tric, follo w-up No observ ation record ed. [email or web address] [address], [place], [address], 10/13/2024 16:17:31 10/20/19 25 10/20/2024 US, obste tric, bioph ysica l profi le + non-s tress test No observ ation record ed. [email or web address] [place] [address], [place], [address], 10/20/2024 18:47:14 10/20/19 25 10/20/2024 US, obste tric, bioph ysica l profi le + non-s tress test No observ ation record ed. [email or web address] [address], [place], [address], 10/20/2024 21:22:41 10/20/19 25 10/20/2024 non-s tress test No observ ation record ed. [email or web address] [place] [address], [place], [address], 10/20/2024 21:09:03 10/27/19 25 10/27/2024 US, obste tric, bioph ysica l profi le + non-s tress test No observ ation record ed. [email or web address] [place] [address], [place], [address], 10/27/2024 10:14:40 10/27/19 25 10/27/2024 US, obste tric, bioph ysica l profi le + non-s tress test No observ ation record ed. [email or web address] [address], [place], [address], 10/27/2024 22:52:49 10/27/19 25 10/27/2024 non-s tress test No observ ation record ed. [email or web address] [facility] [address], [place], [address], 10/27/2024 20:44:47 11/03/19 25 11/03/2024 non-s tress test No observ ation record ed. [email or web address] [facility] [address], [place], [address], 11/03/2024 12:58:00 11/03/19 25 11/03/2024 US, obste tric, bioph ysica l profi le + non-s tress test No observ ation record ed. [email or web address] [facility] [address], [place], [address], 11/03/2024 13:27:06 11/03/19 25 11/03/2024 US, obste tric, bioph ysica l profi le + non-s tress test No observ ation record ed. [email or web address] [address], [facility], [place], [address], 11/03/2024 21:27:37 11/03/19 25 11/03/2024 non-s tress test No observ ation record ed. [email or web address] [place] [address], [place], [address], 11/03/2024 18:40:26 11/03/19 non-s tress test No observ ation record ed. [email or web address] [place] [address], [place], [address], 11/03/2024 18:46:19 11/03/19 25 10/20/2024 non-s tress test No observ ation record ed. [email or web address] [place] [address], [place], [address], 11/03/2024 18:48:59 11/10/19 25 US, obste tric, bioph ysica l profi le No observ ation record ed. [facility] [address], [place], [address], 11/10/2024 10:01:17 11/10/19 25 US, obste tric, follo w-up No observ ation record ed. [facility] [address], [place], [address], 11/10/2024 10:01:21 11/10/19 25 11/10/2024 US, obste tric, bioph ysica l profi le No observ ation record ed. [email or web address] [address], [place], [address], 11/10/2024 10:22:14 Result Notes None recorded. Problems Name Problem SNOMED Code Status Onset Date Resolution Date Notes Provider Name and Address Organization Details Recorded Time 14317253 Active [address] [facility] 17:04:33 Hypothyroi dism 13352131 Active 2023 Levothyrox ine 25mcg rpt 4 weeks. testing 34w Pearl Nicolas [facility] 14:04:46 Problem Notes None recorded. Procedures Surgical History Date Name Laterality Status Provider Name and Address Organization Details Recorded Time 01/27/20 24 SUCTION DILATION & CURETTAGE (SURG) completed Bunny Cat [facility] 01/29/2024 09:59:12 06/11/20 23 IUD Removal completed JOHNNY Broderick [address], [place], [address], [facility] 06/11/2023 10:31:18 06/11/20 23 Date of Last Pap Smear completed Edith Welsh [facility] 01/09/2024 11:26:24 09/29/18 99 Tonsillectomy completed Edith Welsh [facility] 01/09/2024 11:53:32 Imaging Results [...] Address Organization Details Last Updated DateTime 11/10/2024 16948.99 007 g 33 kg/m2 170.18 cm 149 mm[Hg] 89 mm[Hg] Edith Welsh [facility] 09:55:31 Social History Question Answer Notes LastModified by Organizat ion Details LastModified Time Tobacco Smoking Status Never Smoker Edith Welsh null, [facility] 01/09/2024 11:53:25 What Is Your Level Of Alcohol Consumption? None [email or web address] Information not available 01/09/2024 If You Are , What Was Your Level Of Alcohol Consumption Prior To ? Occasional Information not available 01/09/2024 How Many Years [...] Or Vape? Former User Of Electronic Cigarettes [email or web address] Information not available 01/09/2024 What Is The Highest Grade Or Level Of School You Have Completed Or The Highest Degree You Have Received? 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 [id number] Information not available 06/11/2023 Do You Use Any Illicit Or Recreational Drugs? No [email or web address] Information not available 05/12/2024 Do You Use Sunscreen Routinely? Yes Information not available 06/11/2023 Has Tobacco Cessation Counseling Been Provided? No [email or web address] Information not available 01/09/2024 Have You Used IV Drugs? No Information not available 06/11/2023 Do You Or Have You Ever Used Any Other Forms Of Tobacco Or Nicotine? Yes [email or web address] Information not available 01/09/2024 Sex: Unknown Functional [...] (Food, seasonal, environmental ) N Other N Blood Transfusion N Drug/Latex Allergies/Reactions N Breast Cancer N Dermatologic Disorders N Lung Disease N [...] SNOMED-CT Code Diagnosis ICD10 Code Diagnosis Note [id number] Lucita [facility] [address],[place] [address] 10/13/2024 09:13:11 10/13/2024 10:08:50 Hypothyroidism in 098077224 E03.9 Z3A.34 [id number] Margie Hutchinson [facility] [address],[place] [address] 10/13/2024 09:13:25 10/13/2024 10:51:30 Gestation period, 34 weeks 39084606 Z3A.34 [id number] Edith Welsh [place] [address],[place] [address] 10/20/2024 15:52:42 10/21/2024 09:39:53 Maternal obesity complicating , childbirth and the puerperium, antepartum 0093728599 07 O99.213 [id number] Cristine [facility] [address],[place] [address] 10/20/2024 15:53:06 10/20/2024 17:47:24 Hypothyroidism in 089430999 O99.283 Z3A.35 [id number] Margie Hutchinson [facility] [address],[place] [address] 10/20/2024 15:53:20 10/21/2024 00:46:19 Gestation period, 35 weeks 57115527 Z3A.35 [id number] Edith Welsh [place] [address] [place] [address] 10/27/2024 09:13:30 10/28/2024 09:16:54 Hypothyroidism 92851773 E03.9 [id number] [facility] [address] [place] [address] 10/27/2024 09:17:27 10/27/2024 10:09:57 Hypothyroidism in 775663040 O99.283 Z3A.36 [id number] Margie Hutchinson [facility] [address],[place] [address] 10/27/2024 09:17:40 10/27/2024 10:37:52 Gestation period, 36 weeks 80253482 Z3A.36 [id number] Edith Calixtotz [place] [address],[place] [address] 11/03/2024 11:41:18 11/03/2024 13:09:51 Hypothyroidism 60291949 E03.9 [id number] [facility] [address],[place] [address] 11/03/2024 11:41:36 11/03/2024 13:31:58 Hypothyroidism in 923416643 O99.283 Z3A.37 [id number] Margie Hutchinson [facility] [address],[place] [address] 11/03/2024 11:41:57 11/03/2024 13:56:21 Gestation period, 37 weeks 88545643 Z3A.37 [id number] [facility] [address],[place] [address] 11/10/2024 09:18:34 11/10/2024 10:05:55 Hypothyroidism in 231150282 O99.283 Z3A.38 [id number] Margie Hutchinson [facility] [address],[place] [address] 11/10/2024 09:19:13 11/10/2024 10:13:52 Gestation period, 38 weeks 11955775 Z3A.38 Health Concerns Section Related Observation LastModified by Organization Detai ls LastModified Time None Recorded Concern Status LastModified by Organization Details LastModified Time None Recorded Payers Encounter Date Sequence Insurance Name Policy Number Policy Rodriguez Covered Member ID Rodriguez Member ID Guarantor Name 11/10/2024 1 [place] [id number] Kaushal Lynch [id number] 21 Jessi Wells Episode Ob Episode Information Episode Created Date Number of Fetuses Patient Bloodtype Patient rh Status Prepregnancy Weight lbs Domestic Partner Domestic Partner Phone Father Name [employer] Associate Status 05/12/20 24 1 A Positive 186 Kaushal Montgomery en OPEN Fetus Data First Name Last Name Admitted to NICU Weight (g) Sex Living Outcome Pediatric Complications Fetus ID Race Codes Race Delivery Type [id number] Problems Problem Notes declines cf/sma/niptAnterior Placenta Problem Name Start Date End Date Resolution Snomed Code Not e Hypothyroidism 08/09/2024 [id number] Levo thyroxine 25mcg rpt 4 weeks. testing [...] Date Ultra Sound Latest Days Gestation 0 [email or web address] 05/13/2024 11/22/19 25 0 Pre- Flowsheet Flowsheet Date 05/12/2024 Patel Score Blood Edema Fundus Height Fundus Units Glucose Ketones Leukocytes Nitrite Labor Signs Protein Cervic Dilation Cervic Effacement Cervic Station Type Weight in lbs Pre/Post Dialysis Refused Weight 185.029360836587 BP Diastolic BP Location Tested BP Systolic [...] Type Weight in lbs Pre/Post Dialysis Refused 184.346026428110 BP Diastolic BP Location Tested BP Systolic [...] Type Weight in lbs Pre/Post Dialysis Refused 191.886284576734 BP Diastolic BP Location Tested BP Systolic [...] Type Weight in lbs Pre/Post Dialysis Refused 199.472366413401 BP Diastolic BP Location Tested BP Systolic [...] Type Weight in lbs Pre/Post Dialysis Refused 206.625324897371 BP Diastolic BP Location Tested BP Systolic [...] Type Weight in lbs Pre/Post Dialysis Refused 204.808361081515 BP Diastolic BP Location Tested BP Systolic [...] Weight in lbs Pre/Post Dialysis Refused Weight 203.290867495298 BP Diastolic BP Location Tested BP Systolic BP Type 72 123 Fetus Heart Rate Present A 135 Fetus Movement Comments has growth next visit, refil l zhanna, +FM, precautions and education f/u 2 weeks, [...] Weight in lbs Pre/Post Dialysis Refused Weight 205.341120648388 BP Diastolic BP Location Tested BP Systolic [...] Weight in lbs Pre/Post Dialysis Refused Weight 207.603778873572 BP Diastolic BP Location Tested BP Systolic BP Type 84 136 Fetus Heart Rate Present Fetus Movement Comments Flowsheet Date 10/20/2024 Patel Score Blood Edema Fundus Height Fundus Units Glucose Ketones Leukocytes Nitrite Labor Signs Protein Cervic Dilation Cervic Effacement Cervic Station Type Weight in lbs Pre/Post Dialysis Refused 207.252191389108 BP Diastolic BP Location Tested BP Systolic BP Type 84 L arm 136 sitting Fetus Heart Rate Present Fetus Movement Comments Flowsheet Date 10/20/2024 Patel Score Blood Edema Fundus Height Fundus Units Glucose Ketones Leukocytes Nitrite Labor Signs Protein Cervic Dilation Cervic Effacement Cervic Station trace Type Weight in lbs Pre/Post Dialysis Refused 207.214510187271 BP Diastolic BP Location Tested BP Systolic [...] Weight in lbs Pre/Post Dialysis Refused Weight 207.948791070033 BP Diastolic BP Location Tested BP Systolic [...] Weight in lbs Pre/Post Dialysis Refused Weight 207.378025160452 BP Diastolic BP Location Tested BP Systolic [...] Weight in lbs Pre/Post Dialysis Refused Weight 209.233655757439 BP Diastolic BP Location Tested BP Systolic [...] Type Weight in lbs Pre/Post Dialysis Refused 209.883514089033 BP Diastolic BP Location Tested BP Systolic [...] Type Weight in lbs Pre/Post Dialysis Refused 211.005914795962 BP Diastolic BP Location Tested BP Systolic [...]
--- NOTE | 2024-11-10 10:35 | WPDOBADMIT ---
Obstetrics - Admit Note Admission Note: record reviewed. No pertinent additions to the history and/or any subsequent changes in the physical findings that are not consistent with the expected course of the were found. Additions to the history and/or subsequent changes in the physical findings follow. Admit for IOL, oligohydramnios, anticipate vaginal delivery
[2024-11-10 11:13] LABS: Basophils Percent Auto 0.3 % (0.2-1.2); Eosinophils Absolute Auto 0.1 K/mm3 (0-0.3); Eosinophils Percent Auto 0.7 % (0-4.4); Hematocrit 31.4 % (37.0-47.0); Hemoglobin 10.2 g/dL (12.0-15.0); Immature Granulocyte Absolute 0.08 K/mm3 (0.00-0.031); Immature Granulocyte Percent A 0.8 % (0-0.5); Lymphocytes Absolute Auto 1.85 K/mm3 (0.9-3.2); Lymphocytes Percent Auto 18.4 % (18.3-44.2); Mean Corpuscular HGB Conc 32.5 g/dl (32-36); Mean Corpuscular Hemoglobin 26.4 pg (26-34); Mean Corpuscular Volume 81.3 fl (80-100); Mean Platelet Volume 11.6 fl (7.4-10.4); Monocytes Absolute Auto 0.7 K/mm3 (0.1-0.6); Monocytes Percent Auto 6.8 % (2.6-8.5); Neutrophils Absolute Auto 7.4 K/mm3 (1.3-6.7); Platelet Count Result 207 k/mm3 (150-375); Red Blood Count 3.86 M/mm3 (4.2-5.4); Red Cell Distribution Width 13.2 % (11.5-14.5); White Blood Count 10.1 K/mm3 (4.5-10.0)
[2024-11-10 11:44] LABS: Rapid Plasma Reagin Non-Reactive (NonReactive)
[2024-11-10 12:08] LABS: HIV 1/2 Ab P24 Ag Result Negative (Negative)
[2024-11-10] MEDS: OXYTOCIN 30 UNITS/NS 500 ML 30 UNITS/500 ML BAG IV CONT (12:56)
[2024-11-10] MEDS: LACTATED RINGERS 1,000 ML 125 ML IV CONT ×3 (12:56→22:40)
--- NOTE | 2024-11-10 17:16 | PM.OBPNLAB ---
Pain Control Date/time seen: 11/10/24 17:16 Comments: SVE 2-3/80/-2 AROM moderate amount of clear, odorless fluid, IUPC placed anticipate vaginal delivery
--- NOTE | 2024-11-10 18:10 | P.PNAN_ITS ---
Anes - Eval Pre Procedure Procedure: labor epidural Date/Time: 11/10/24 18:10 Surgeon: jose m Preop Diagnosis: pain during labor Pre Op Diagnosis: induction of labor Patient Data Age: 29 Gender: F Height: Weight: Last Vital Signs Temp 36.6 C 11/10/24 17:30 Pulse 90 11/10/24 17:44 BP 131/80 11/10/24 17:44 O2 Del Method Room Air 11/10/24 09:27 Allergies Allergy/AdvReac Type Severity Reaction Status Date / Time No Known Allergies Allergy Verified 11/10/24 10:09 Home Medications ?Medication ?Instructions ?Recorded ?Confirmed ?Type docusate sodium 100 mg capsule 100 mg PO DAILY 10/22/24 10/27/24 History (Colace) levothyroxine 25 mcg capsule 25 mcg PO DAILY 10/22/24 10/27/24 History vit no.95-ferrous 1 tablet PO DAILY 10/22/24 10/27/24 History fumarate 28 mg-folic acid 800 mcg tablet () Laboratory Tests 11/10/24 10:15 WBC 10.1 H K/mm3 (4.5-10.0) RBC 3.86 L M/mm3 (4.2-5.4) Hgb 10.2 L g/dL (12.0-15.0) Hct 31.4 L % (37.0-47.0) MCV 81.3 fl (80-100) MCH 26.4 pg (26-34) MCHC 32.5 g/dl (32-36) RDW 13.2 % (11.5-14.5) Plt Count 207 k/mm3 (150-375) MPV 11.6 H fl (7.4-10.4) Immature Gran % (Auto) 0.8 H % (0-0.5) Neut % (Auto) 73.0 % (45.5-73.1) Lymph % (Auto) 18.4 % (18.3-44.2) [place] % (Auto) 6.8 % (2.6-8.5) Eos % (Auto) 0.7 % (0-4.4) Baso % (Auto) 0.3 % (0.2-1.2) Lymph # (Auto) 1.85 K/mm3 (0.9-3.2) [place] # (Auto) 0.7 H K/mm3 (0.1-0.6) Eos # (Auto) 0.1 K/mm3 (0-0.3) Baso # (Auto) 0.0 K/mm3 (0.0-0.1) Abs Immat Gran (auto) 0.08 H K/mm3 (0.00-0.031) Absolute Neuts (auto) 7.4 H K/mm3 (1.3-6.7) Absolute Nucleated RBC 0.000 K/mm3 (0.0-0.012) Nucleated RBC % 0.0 % (0.0-0.2) RPR Non-reactive (NonReactive) HIV 1&2 Ab/P24 Ag 4thGn Negative (Negative) Blood Type A Positive Antibody Screen Negative Patient hx anesthesia problems: none Family hx anesthesia problems: none Results Review: All pre-operative results and documents have been reviewed as part of the pre- operative evaluation. [facility] Past Medical History Medical History (Updated 11/10/24 @ 18:11 by Sarah Fuller CRNA) IUP (intrauterine ), incidental Missed ab Surgical History Surgical History (Updated 01/27/24 @ 11:02 by Segundo Crawford MD) Hx of tonsillectomy Family History Family History (Updated 10/22/24 @ 12:32 by Teresa Diamond RN) Grandparent Diabetes mellitus Grandparent Diabetes mellitus Other Cancer Family history of thyroid problem Social History Social History Smoking status: Never smoker Alcohol intake: current Drinks per week: 6 Substance use: former Substance use type: marijuana Do You Feel Safe in your Home?: Yes Lack of Transportation: No Lack of Food: Often True Current Housing: I Have Housing Concerned About Future Housing: No Difficulty Paying Gas/Electric Bills: No Difficulty Paying for Meds: No Currently Unemployed: No Education: Bachelor's Degree Difficulty w/ Childcare or Family Care: No Living arrangements: with family Spiritual care concerns: No Exam Day of Procedure 11/10/24 18:10
[2024-11-10] MEDS: ONDANSETRON INJ 4 MG/2 ML VIAL IV PUSH (23:35)
[2024-11-11] VITALS (38 sets, daily range): BP systolic 107–134; BP diastolic 59–85; PULSE 72–101; RESP 15–16; TEMP 36.4–36.9; O2SAT 95–100
--- NOTE | 2024-11-11 00:27 | PM.OBPRVD ---
OB - Vaginal Delivery Note Procedure Delivery date: 11/11/24 Events: Oligohydramnios Induction method: AROM and Per Pitocin Protocol Delivery monitor: External FHT and Internal Uterine Route of delivery: Episiotomy description: None Laceration Description: None Specimen: No Quantitative Blood Loss (ml): 80 Anesthesia type: Epidural Disposition: Floor Complications: Other complications Baby Date of : 11/11/24 Time of : 00:15 Gestational Age by Date: 38 Infant gender: Male presentation: vertex position: Left Occiput Anterior Placenta delivery description: Spontaneous Cord Vessel Description: 3 Vessels, Nuchal Cord (x1), Loose and Delayed Cord Clamping score one minute: 9 score five minutes: 9 Narrative: mother and baby in stable condition
[2024-11-11] MEDS: OXYTOCIN 30 UNITS/NS 500 ML 30 UNITS/500 ML BAG 125 UNITS IV CONT (00:43)
[2024-11-11] MEDS: WITCH HAZEL 40 PADS 1 PAD TOPICAL (02:08)
[2024-11-11] MEDS: BENZOCAINE 20% AER SPR (*SP) 56 GM CAN 1 SPRAY TOPICAL (02:08)
--- NOTE | 2024-11-11 02:33 | OBPPTRN ---
Patient transferred to post room #282 via wheelchair. Support person present. Oriented to unit, room, information board, rooming in, admission packet and security measures. Patient verbalizes understanding.
[2024-11-11] MEDS: LEVOTHYROXINE SODIUM 25 MCG TABLET PO (07:02)
[2024-11-11] MEDS: IBUPROFEN 600 MG TABLET PO ×2 (07:04→16:09)
--- NOTE | 2024-11-11 11:11 | WPDANLDPN2 ---
Anes-Prog Note L&D Date/Time: 11/11/24 11:11 Comfortable throughout: labor and delivery Neuraxial method: epidural Epidural/Spinal procedure site: clean & non-tender Neuro status: Neuro function grossly intact. Cardiovascular status: normal Respiratory status: normal Airway patency: baseline Mental status: baseline Post-Op hydration status: normal Vital Signs: Last Vital Signs Temp 97.5 F L 11/11/24 07:20 Pulse 80 11/11/24 07:20 Resp 16 11/11/24 07:20 BP 111/82 11/11/24 07:20 Pulse Ox 100 11/11/24 07:20 O2 Del Method Room Air 11/11/24 02:40 Pain score (VAS): 0/10 I/O: Intake & Output 11/10/24 11/11/24 11/11/24 23:59 07:59 15:59 Intake Total 1216.7 Output Total 80 Balance 1216.7 -80 Post-procedural complaints: none Patient feedback: Patient satisfied with anesthetic care.
[2024-11-11] MEDS: MULTIVIT/MIN/PREN/FOL AC/IRON TABLET 1 TAB PO (12:24)
[2024-11-11] MEDS: ACETAMINOPHEN 325 MG TABLET 650 MG PO (12:25)
--- NOTE | 2024-11-11 15:56 | PC.NURSE ---
On 11/11/24, the [employer] [facility] student, Rodolfo Harrison, provided care and completed [facility] documentation on this patient. I have reviewed the student's documentation and agree with the findings.
--- NOTE | 2024-11-11 17:12 | PC.NURSE ---
1645. Introductions were made, then consulted with patient to assess needs related to . Mom reports it is her intent to try and exclusively breastfeed if she is able. She reports she wasn't able to breastfeed her first child due to latch difficulties. Mom also reports she has hypothyroidism and takes synthroid. Discussed with mother her plans to feed her infant and the experience so far. Encouraged mother to express any questions or concerns she has regarding feedings. Advised her to call out for a latch check or if she needs assistance waking or positioning baby. Reviewed the blue feeding worksheet for required output and feeding at least 8-12 times every 24 hours. Resources provided for inpatient and outpatient services with the feeding sheet, mom/baby guide, admission packet and name/number written on the communication board. Mother voiced understanding of information and will call if there is a request for assistance. Reported to the Primary RN?
--- NOTE | 2024-11-11 17:58 | PC.NURSE ---
1740. Called to patients room to assess latch. latched in cross cradle position to the R breast. Mom complains of some pain at the nipple. We worked on delatching appropraitely and relatching with proper alignment. Infant tends to roll bottom lip under, and mom needs to work on putting in the sniffing position to get deeper latch. We reviewed aiming the nipple towards the roof of the infants mouth for a deeper latch as well. Discussed breast/nipple care with good hand hygiene, signs of a correct latch, listening for swallows and documenting feedings on the feeding sheet. Mother instructed to call for assistance if will not feed every 3 hours, if there is discomfort with , or if mother has any other questions or concerns. resources provided including the Mom and Baby Guide and name/number on communication board. Mother verbalized understanding. Updated patient?s primary RN with education provided.?
[2024-11-12] MEDS: IBUPROFEN 600 MG TABLET PO ×2 (00:20→07:26)
[2024-11-12 05:08] LABS: Hematocrit 29.9 % (37.0-47.0); Hemoglobin 9.6 g/dL (12.0-15.0)
[2024-11-12] MEDS: LEVOTHYROXINE SODIUM 25 MCG TABLET PO (07:26)
[2024-11-12 07:30] VITALS: BP 131/80; PULSE 83; RESP 18; TEMP 36.6; O2SAT 99
--- NOTE | 2024-11-12 07:54 | P.PNOB_ITS ---
OB - PN: Subj Subjective Date/time seen: 11/12/24 07:54 Interval history: pp day 1 doing well d/c home OB - PN: Obj Data Labs 11/12/24 04:25 Labs: Laboratory Results - last 24 hr 11/12/24 04:25 Hgb 9.6 L Hct 29.9 L OB - PN A/P Plan day: 2 Plan: routine care Time Spent With Patient Time: Total time spent is greater than 50% in coordination of care (as documented) at patient's floor/unit and/or counseling patient: Review of Systems 2 Review of Systems: All systems reviewed & are unremarkable except as noted in HPI and below Exam 2 Const: General: cooperative and healthy appearing Chest: Chest palpation & inspection: normal inspection of the chest Resp: Effort & Inspection: normal respiratory effort
--- NOTE | 2024-11-12 07:55 | P.DS_ITS ---
DS: Admitting Diagnosis Discharge Date 11/12/24 Admitting Diagnosis oligohydramnios, IOL DS: Discharge Diagnosis Discharge Diagnosis (1) Vaginal delivery: Code(s): O80 - Encounter for full-term uncomplicated delivery Status: Acute OB - DS: Summary OB Procedures : None OB Procedures Intrapartum: Spontaneous Vag Delivery OB Procedures: : None Peripartum Data Laceration Description: None Episiotomy description: None Time Spent with Patient Time attestation: Total time spent providing and/or coordinating discharge services: DS: Data Data Completed and Pending Labs on day of discharge: Labs from last 24 hours 11/12/24 04:25 Hgb 9.6 L Hct 29.9 L Discharge Plan Discharge Attending physician on discharge: Zen Corcoran Discharging Clinician: Margie Hutchinson Patient Disposition: Home, Self-Care Activity: pelvic rest Diet: regular Patient Instructions: Antibiotic Form Patient Language: Albanian Stand Alone Forms: General Discharge Information Follow-up/Referrals: Margie Hutchinson, CNM [Certified Nurse Java Tech] - 4 Weeks Discharge Medications: Continued docusate sodium [Colace] 100 mg capsule 100 mg PO DAILY levothyroxine 25 mcg capsule 25 mcg PO DAILY PNV cmb#95-ferrous fumarate-FA [] 28 mg iron- 800 mcg tablet 1 tablet PO DAILY Date of admission: 11/10/24 09:03 Primary Care Provider: PHYSICIAN,PERSONNEL TECHNICIAN Admitting Provider: Zen Corcoran Attending physician on admission: Zen Corcoran Condition: Stable
--- NOTE | 2024-11-12 08:00 | PC.NURSE ---
Introductions were made, then consulted with patient to assess needs related to . Discussed with mother her?plans to feed?her infant and the?experience so far. Per mother she had some nipple soreness over night and had decided to give baby a formula bottle a few times, RN gave mother the cooling hydrogels and reminded her to use her Lanolin and call if she needs assistance with latching baby. Mother is requesting an insurance breast pump to take home and is needing a [facility] referral. RN to have mother fill out paperwork for the breast pump and the [facility] referral, RN to fax each. RN advised mother that if baby does not feed at the breast then she should use her breast pump and supplement with either pumped breast milk and/or formula. Mother is feeding appropriately for growth of and understands stimulating infant to eat if needed. Infant has had appropriate feedings in the last 24 hours meets the outcomes for weight, output, blood sugar and jaundice at this time. Reinforced understanding of milk production, transition of milk, signs of adequate intake, transition of stool, prevention/relief of engorgement, plugged ducts, mastitis, responsive watching for feeding cues, the different methods of stimulating infant to breastfeed 1-3 hours after the start of the last feeding, community resources, and when to call a provider using the resource of the feeding sheet along with the mom and baby guide. Mother voiced understanding of the information shared, is confident to continue effectively her infant at home, when to call for assistance, denies any additional assistance or education at this time. Resources provided for inpatient and outpatient services with the feeding sheet, mom/baby guide and name written on the communication board. Mother voiced understanding of information and will call if there is a request for assistance. Reported to the Primary RN.
--- NOTE | 2024-11-12 08:04 | WPDANLDPN2 ---
Anes-Prog Note L&D Date/Time: 11/12/24 08:04 Comfortable throughout: labor and delivery Neuraxial method: epidural Epidural/Spinal procedure site: clean & non-tender Neuro status: Neuro function grossly intact. Cardiovascular status: normal Respiratory status: normal Airway patency: baseline Mental status: baseline Post-Op hydration status: normal Vital Signs: Last Vital Signs Temp 36.7 C 11/11/24 19:18 Pulse 84 11/11/24 19:18 Resp 16 11/11/24 19:18 BP 112/65 11/11/24 19:18 Pulse Ox 100 11/11/24 19:18 O2 Del Method Room Air 11/11/24 02:40 Pain score (VAS): 10/08 I/O: Intake & Output 11/11/24 11/12/24 11/12/24 23:59 07:59 15:59 Intake Total 400 Output Total 7 Balance 400 -7 Post-procedural complaints: none Patient feedback: Patient satisfied with anesthetic care.
--- NOTE | 2024-11-12 09:17 | PC.NURSE ---
Charting by student nurse Emily Craven, reviewed and verified by this RN.
--- NOTE | 2024-11-12 09:38 | PC.NURSE ---
Patient viewed the discharge video Mother & Baby Care, The First Two Weeks . Patient was given the opportunity and encouraged to ask questions. Patient verbalized understanding of information shared and has been given the mother/baby guide for home reference.
[2024-11-12] MEDS: ACETAMINOPHEN 325 MG TABLET 650 MG PO (12:27)
[2024-11-12] MEDS: POLYSACCHARIDE IRON COMPLEX 150 MG CAPSULE PO (12:27)
[2024-11-12] MEDS: DOCUSATE SODIUM 100 MG CAPSULE PO (12:27)
[2024-11-13 09:17] VITALS: BP 120/76; PULSE 99; RESP 18; TEMP 36.8; O2SAT 100
== END 2024-11-12 13:30 | disposition home or self-care (01) | DRG 807 ==
LOC: ANHLDR 17:58 → ANHOB2 11-11 02:34
PROVIDERS: Advanced Practice Midwife; Admitting Provider Obstetrics & Gynecology; Visit Provider Obstetrics & Gynecology
DX: O41.03X0 Oligohydramnios, third trimester, not applicable or unspecified (principal); Z37.0 Single live birth; O69.81X0 Labor and delivery complicated by cord around neck, without compression, not applicable or unspecified; Z3A.38 38 weeks gestation of pregnancy
CPT/HCPCS: 36415; 85014; 85018; 85025; 86592; 86703; 86850; 86900; 86901; A9270; G0432; J2405; J2590; J2795; J7120